=== PATIENT | female | born 1970 | race Caucasian/White ===

== ENCOUNTER 2024-06-12 14:04 | Outpatient (CLI) | payer OTHER, SELFPAY ==
--- OUTSIDE RECORDS SUMMARY | 2024-06-12 14:13 | XMS_ITS | Encounter Summary ---
Author Organization [facility] Address [address] [place] [address] Care Team Providers Care Patient Safety Manager Name Role Phone Mainor Welch MD Primary Care Provider [phone] Encounter Details Date Type Department Care Team (Late Contact Info) Description 03/21/2007 Outpatient Historical [facility] Internal Medicine [address] [phone] Mainor Welch MD [address] [place] [address] [address] [place] [address] Social History Tobacco Use Types Packs/Day Years Used Date Smoking Tobacco: Never Assessed Comments Unknown Sex and Gender Information Value Date Recorded Sex Assigned at Not on file Legal Sex Female 5:28 AM RESPIRATORY THERAPY MANAGER Gender Identity Not on file Sexual Orientation Not on file documented as of this encounter Last Filed Vital Signs Vital Sign Reading Time Taken Comments Blood Pressure 140/88 03/21/2007 10:45 AM RESPIRATORY THERAPY MANAGER Pulse - - Temperature - - Respiratory Rate - - Oxygen Saturation - - Inhaled Oxygen Concentration - - Weight 118.8 kg (262 lb) 03/21/2007 10:45 AM RESPIRATORY THERAPY MANAGER Height - - Body Mass Index - - documented in this encounter Plan of Treatment Upcoming Encounters Date Type Department Care Team (Late st Contact Info) Description 09/10/2024 3:20 PM CDT Office Visit [facility] Primary Care [address] [place] [address] Mainor Welch MD [address] [place] [phone] documented as of this encounter Visit Diagnoses Not on filedocumented in this encounter Care Teams Patient Safety Manager Relationship Specialty Start Date End Date Mainor Welch MD PCP - General 10/09/07 documented as of this encounter
--- OUTSIDE RECORDS SUMMARY | 2024-06-12 14:13 | XMS_ITS | Encounter Summary ---
Author Organization [facility] Address [address] [place] [address] Care Team Providers Care Founder & Ceo Name Role Phone Mainor Welch MD Primary Care Provider Encounter Details Date Type Department Care Team (Late st Contact Info) Description 05/22/2007 Orders Only [facility] Internal Medicine [address] [address] Mainor Welch MD [address] [place] [phone] Social History Tobacco Use Types Packs/Day Years Used Date Smoking Tobacco: Never Assessed Comments Unknown Sex and Gender Information Value Date Recorded Sex Assigned at Not on file Legal Sex Female 5:28 AM SCALE ATTENDANT Gender Identity Not on file Sexual Orientation Not on file documented as of this encounter Progress Notes * Mainor Welch MD - 09/05/2007 9:05 PM CDT TIME:08:45 am PATIENT`S HOME PHONE: PATIENT`S WORK PHONE: PATIENT`S INSURANCE: [employer] WHO TOOK THE CALL: Ila Dunn C GENERAL INFORMATION ALTERNATIVE PHONE NUMBER: [phone] WHO CALLED: Patient called. Patient reports no known allergies. 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 The symptoms began approximately 2 days ago. Drainage yellow COUGH:Patient complains of cough. The symptoms began approximately 2 days ago. Nonproductive HEADACHE: Patient complains of headache. The symptoms began approximately 2 days ago. Pressure RUNNY NOSE: Patient complains of runny nose. The runny nose symptoms began approximately 2 days ago. SECTION 1: REQUESTED ACTION bernard 05/22/07 at 08:48 am: MEDICATION REQUEST: Patient wants medications and can not come in. DOCTOR`S RESPONSE: susu 05/22/07 at 08:49 am MEDICATIONS: Call in to Pharmacy ZITHROMAX Z-LYNNETTE ORAL TABLET 250 MG, DIRECTED, 1 Dispensed, status: NEW PRESCRIPTION, 05/22/2007. will need seen if not improving FINAL ACTION: bernard 05/22/07 at 09:02 am Spoke with patient 05/22/07 at 09:02 am. Called pharmacy at 05/22/07 at 09:02 am. Electronically Signed by: Ila Dunn on Tuesday, May 22, 2007 documented in this encounter Plan of Treatment Upcoming Encounters Date Type Department Care Team (Late st Contact Info) Description 09/10/2024 3:20 PM CDT Office Visit [facility] [place] [address] Mainor Welch MD [address] [place] [address] documented as of this encounter Visit Diagnoses Not on filedocumented in this encounter Care Teams Founder & Ceo Relationship Specialty Start Date End Date Mainor Welch MD PCP - General 10/09/07 documented as of this encounter
--- OUTSIDE RECORDS SUMMARY | 2024-06-12 14:13 | XMS_ITS | Encounter Summary ---
Author Organization [facility] Address [address] [place] [address] Care Team Providers Care Quilting Machine Operator Name Role Phone Mainor Welch MD Primary Care Provider [phone] Encounter Details Date Type Department Care Team (Late st Contact Info) Description 02/21/2007 Outpatient Historical [facility] Internal Medicine [address] [address] Mainor Welch MD [address] [place] [phone] Social History Tobacco Use Types Packs/Day Years Used Date Smoking Tobacco: Never Assessed Comments Unknown Sex and Gender Information Value Date Recorded Sex Assigned at Not on file Legal Sex Female 5:28 AM SUPERVISING BAILIFF Gender Identity Not on file Sexual Orientation Not on file documented as of this encounter Last Filed Vital Signs Vital Sign Reading Time Taken Comments Blood Pressure 130/80 02/21/2007 11:30 AM CDT Pulse - - Temperature 36.8 C (98.2 F) 02/21/2007 11:30 AM CDT Respiratory Rate - - Oxygen Saturation - - Inhaled Oxygen Concentration - - Weight 123.4 kg (272 lb) 02/21/2007 11:30 AM CDT Height - - Body Mass Index - - documented in this encounter Plan of Treatment Upcoming Encounters Date Type Department Care Team (Late st Contact Info) Description 09/10/2024 3:20 PM CDT Office Visit [facility] Primary Care [address] [place] [address] Mainor Welch MD [address] [place] [address] [address] [place] [address] documented as of this encounter Visit Diagnoses Not on filedocumented in this encounter Care Teams Quilting Machine Operator Relationship Specialty Start Date End Date Mainor Welch MD PCP - General 10/09/07 documented as of this encounter
--- OUTSIDE RECORDS SUMMARY | 2024-06-12 14:13 | XMS_ITS | Referral Summary ---
Author Organization [facility] [address] Address [address] [place] [address] Care Team Providers Care Software Engineering Associate Manager Name Role Phone Mainor Welch MD Primary Care Provider + Allergies No known active allergies Medications zolpidem (AMBIEN) 10 mg tablet Take 10 mg by mouth nightly as needed 1 Active valACYclovir (VALTREX) 500 mg tablet Take 500 mg by mouth 2 (two) times a day 0 Active prochlorperazin e (COMPAZINE) 10 mg tablet Take 10 mg by mouth every 6 (six) hours as needed 8 Active clotrimazole-be tamethasone (LOTRISONE) cream Apply topically 2 (two) times a day 9 Active buPROPion XL (WELLBUTRIN XL) 150 mg 24 hr tablet 1 Active ALPRAZolam (XANAX) 0.25 mg tablet 1 Active mupirocin (BACTROBAN) 2 % ointmentIndicat ions:Insect bite of left shoulder, initial encounter Apply topically 3 (three) times a day 22 g 4 Active Active Problems No known active problems Social History Tobacco Use Types Packs/Day Years Used Date Smoking Tobacco: Never Assessed Comments Unknown Sex and Gender Information Value Date Recorded Sex Assigned at Not on file Legal Sex Female 12:51 PM MERCHANDISING DIRECTOR Gender Identity Not on file Sexual Orientation Not on file Last Filed Vital Signs Vital Sign Reading Time Taken Comments Blood Pressure 110/64 06/02/2023 11:01 AM MERCHANDISING DIRECTOR Pulse 70 06/02/2023 11:01 AM MERCHANDISING DIRECTOR Temperature 36.9 C (98.5 F) 06/02/2023 11:01 AM MERCHANDISING DIRECTOR Respiratory Rate 21 06/02/2023 11:01 AM MERCHANDISING DIRECTOR Oxygen Saturation 97% 06/02/2023 11:01 AM MERCHANDISING DIRECTOR Inhaled Oxygen Concentration - - Weight 90.7 kg (200 lb) 06/02/2023 11:01 AM MERCHANDISING DIRECTOR Height 170.2 cm (5' 7 ) 06/02/2023 11:01 AM MERCHANDISING DIRECTOR Body Mass Index 31.32 06/02/2023 11:01 AM MERCHANDISING DIRECTOR Plan of Treatment Not on file [place] [id number] [employer] [facility] [place] [id number] [facility] [employer] Care Teams Software Engineering Associate Manager Relationship Specialty Start Date End Date Mainor Welch MD [address] [place] [address] PCP - General Internal Medicine 01/07/21
--- OUTSIDE RECORDS SUMMARY | 2024-06-12 14:13 | XMS_ITS | Clinical Summary ---
Author Organization [facility] [address] Address [address] [place] [phone] Care Team Providers Care Furniture Manager Name Role Phone Mainor Welch MD [...] on file Legal Sex Female 12:51 PM THERMOSTATIC CONTROLS SUPERVISOR Gender Identity Not on file Sexual Orientation Not on file Obstetrics History Last Filed Vital Signs Vital Sign Reading Time Taken Comments Blood Pressure 110/64 06/02/2023 11:01 AM THERMOSTATIC CONTROLS SUPERVISOR Pulse 70 06/02/2023 11:01 AM THERMOSTATIC CONTROLS SUPERVISOR Temperature 36.9 C (98.5 F) 06/02/2023 11:01 AM THERMOSTATIC CONTROLS SUPERVISOR Respiratory Rate 21 06/02/2023 11:01 AM THERMOSTATIC CONTROLS SUPERVISOR Oxygen Saturation 97% 06/02/2023 11:01 AM THERMOSTATIC CONTROLS SUPERVISOR Inhaled Oxygen Concentration - - Weight 90.7 kg (200 lb) 06/02/2023 11:01 AM THERMOSTATIC CONTROLS SUPERVISOR Height 170.2 cm (5' 7 ) 06/02/2023 11:01 AM THERMOSTATIC CONTROLS SUPERVISOR Body Mass Index 31.32 06/02/2023 11:01 AM THERMOSTATIC CONTROLS SUPERVISOR Plan of Treatment Health Maintenance Due Date Last Done Comments Cervical Cancer Screening 1971 Colon Cancer Screening-Colonoscopy 1971 Depression Screening 1971 Hepatitis C Screening 1971 Hepatitis B Screening 08/22/1989 Regular Well Visit/Exam 18-64 08/22/1989 Zoster Vaccine (1 of 2) 08/22/2021 Breast Cancer Screening-Mammogram 12/24/2023 12/23/2022, 12/23/2022, 09/15/2021, Additional history exists Covid-19 Vaccine (3 - season) 2023 05/25/2021, 07/22/2020 Influenza Vaccine (#1) 2023 , 01/22/2022, 04/02/2021, Additional history exists DTaP/Tdap/Td Vaccine (3 - Td or Tdap) 08/21/2031 08/20/2021, 03/13/2012 Pneumococcal vaccine <65 Aged Out No longer eligible based on patient's age to complete this topic Insurance winter [facility] [id number] [employer] [address] [place] [id number] [facility] [employer] Care Teams Furniture Manager Relationship Specialty Start Date End Date Mainor Welch MD [address] [place] [phone] PCP - General Internal Medicine 01/07/21
--- OUTSIDE RECORDS SUMMARY | 2024-06-12 14:13 | XMS_ITS | Encounter Summary ---
Author Organization [facility] Address [address] [place] [address] Care Team Providers Care Component Overhaul Operator Name Role Phone Mainor Welch MD Primary Care Provider [phone] Encounter Details Date Type Department Care Team (Late st Contact Info) Description 03/21/2007 Orders Only [facility] Internal Medicine [address] [address] Mainor Welch MD [address] [place] [phone] Social History Tobacco Use Types Packs/Day Years Used Date Smoking Tobacco: Never Assessed Comments Unknown Sex and Gender Information Value Date Recorded Sex Assigned at Not on file Legal Sex Female 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 CHIEF COMPLAINT follow up elevated B/P and migraines. HISTORY: headache better, had sinus-improved, lab pend, lost 10 lbs PHYSICAL EXAMINATION: EARS, NOSE, MOUTH AND THROAT: EARS: Tympanic membranes shiny without retraction. Canals unremarkable. Hearing grossly normal. ORAL: Normal oropharynx. NECK/THYROID: Trachea midline. No thyroid enlargement, tenderness, or mass. No supraclavicular or cervical adenopathy. RESPIRATORY: Clear to auscultation and percussion. Normal respiratory effort. CARDIOVASCULAR: CARDIAC: Regular rhythm. No murmurs, rubs, or gallops. EDEMA/VARICOSITIES OF EXTREMITIES: No edema or varicosities. ASSESSMENT/PLAN: 311-DEPRESSION discussed wean zoloft add alt med MEDICATIONS: WELLBUTRIN SR ORAL TABLET 12 HR 100 MG, 1 Every Day, 30 Dispensed, 3 Fills, status: NEW PRESCRIPTION, 03/21/2007. 783.1-ABNORMAL WEIGHT GAIN cont med, enc exercise 784.0-HEADACHE inc med, improved MEDICATIONS: TOPAMAX ORAL TABLET 50 MG, 1 Two Times A Day, 60 Dispensed, 4 Fills, status: NEW PRESCRIPTION, 03/21/2007. 796.2-BLOOD PRESSURE ELEVATED W/O DX OF HTN cont monitor, may need med RETURN VISIT : Patient instructed to return in 6 weeks. Electronically Signed by: Mainor Welch MD on Wednesday, March 21, 2007 documented in this encounter Plan of Treatment Upcoming Encounters Date Type Department Care Team (Late st Contact Info) Description 09/10/2024 3:20 PM CDT Office Visit [facility] Primary Care [id number] [place] [address] Mainor Welch MD [address] [place] [phone] documented as of this encounter Visit Diagnoses Not on filedocumented in this encounter Care Teams Component Overhaul Operator Relationship Specialty Start Date End Date Mainor Welch MD PCP - General 10/09/07 documented as of this encounter
--- OUTSIDE RECORDS SUMMARY | 2024-06-12 14:13 | XMS_ITS | Clinical Summary ---
Author Organization [facility] Address [address] [place] [address] Care Team Providers Care Irrigation Teacher Name Role Phone Mainor Welch MD Primary Care Provider [phone] Allergies Active Allergy Reactions Criticality Noted Date Comments No Known Allergies 02/21/2007 Medications omeprazole (PriLOSEC) 10 mg Capsule, Delayed Release(E.C.) Take 20 mg by mouth daily. Active calcium as carbonate (TUMS) 500 mg (200 mg elemental) Tablet, Chewable Take by mouth. Activ e clotrimazole-be tamethasone (Lotrisone) 1-0.05 % Cream Apply to affected area 2 times daily. Chest bid 45 Gram 2 2 Active valACYclovir (VALTREX) 500 mg tablet Take 1 Tablet (500 mg) by mouth 2 times daily. 30 Tablet 3 3 Active zolpidem (Ambien) 10 mg tabletIndicatio ns:Other insomnia Take 1 Tablet (10 mg) by mouth nightly as needed for Insomnia. 90 Tablet 3 3 Active buPROPion HCL (WELLBUTRIN XL) 150 mg Extended Release 24 hour tabletIndicatio ns:Depressive disorder TAKE 1 TABLET(150 MG) BY MOUTH DAILY IN THE MORNING 90 Tablet 3 4 Active ALPRAZolam (XANAX) 0.25 mg tabletIndicatio ns:Generalized anxiety disorder TAKE 1 TABLET(0.25 MG) BY MOUTH TWICE DAILY NEEDED FOR ANXIETY 60 Tablet 3 4 Active zolpidem (AMBIEN) 10 mg tabletIndicatio ns:Other insomnia TAKE 1 TABLET(10 MG) BY MOUTH EVERY NIGHT NEEDED FOR INSOMNIA 30 Tablet 3 4 Active prochlorperazin e maleate (COMPAZINE) 10 mg tablet Take 1 Tablet (10 mg) by mouth every 6 hours as needed for Nausea. 30 Tablet 1 4 Active tirzepatide, weight loss, (Zepbound) 7.5 mg/0.5 mL Pen Injector Inject 7.5 mg by subcutaneous injection every 7 days. 2 mL 3 4 Active thiamine (VITAMIN B-1) 100 mg tablet Take 1 Tablet (100 mg) by mouth daily. 90 Tablet 3 5 Active Active Problems Patient Care Coordination No te Formatting of this note migh t be different from the original. Prev visit 09/19/23 Problem Noted Date Diagnosed Date Obesity (BMI 30.0-34.9) 03/21/2023 Vitamin B12 deficiency (non anemic) 10/29/2022 Genital herpes 04/04/2013 Essential hypertension, benign 11/09/2012 Insomnia 02/21/2007 Resolved Problems Problem Noted Date Diagnosed Date Resolved Date Abnormal weight gain 02/21/2007 014 Headache(784.0) 02/21/2007 10/19/2007 Elevated blood pressure read ing without diagnosis of hypertension 02/21/2007 11/09/2012 Encounters Date Type Department Care Team Description 05/16/2024 External Device Data STL ABSTRACTION Provider, Abstract 05/14/2024 Telephone [facility] Primary Care [place] [address] [address] [facility] [address] [place] [address] Mainor Welch MD Patient Communication 05/14/2024 Results Follow-Up [place] [address] [address] [facility] [address] [place] [address] Mainor Welch MD CBC WITH DIFFERENTIAL, COMPREHENSIVE METABOLIC PANEL, IRON, TIBC, AND PERCENT SATURATION, Additional followed-up results: 4 from Last 3 Months Immunizations Immunization Administration Dates Next Due (ADACEL/BOOSTRIX)(10 YR UP) TDAP VACCINE, 0.5ML, IM 08/20/2021,03/13/2012 (PAT) COVID-19 VACCINE - EMERGENCY USE AUTHORIZATION, AD26,COV2S(PF) 0.5 ML IM SUSP 07/22/2020 (SPIKEVAX) (12 YRS UP PRIMAR Y SERIES) COVID-19 VACCINE - MRNA-1273(PF) 100 MCG/0.5 ML IM SUSP 05/25/2021 INFLUENZA VACCINE QUADRIVALE NT 6 MOS UP PF IM 03/21/2023,04/02/2021,02/27/2018 INFLUENZA VACCINE TRIVALENT SPLIT VIRUS, (6 MOS UP), 0.5ML (PF), IM 02/23/2024 Influenza Seasonal Unspecifi ed Formulation IM 03/21/2023,01/22/2022,03/08/2020,2016 Influenza Vaccine 18+ C.derived Pf Im 03/22/2019 Family History Medical History Relation Name Comments Stroke Father Diabetes Maternal Aunt Hypertension Maternal Aunt Stroke Maternal Aunt Diabetes Mother Pastora Hypertension Mother Pastora Stroke Mother Pastora Breast Cancer Neg Hx Colon Cancer Neg Hx Ovarian Cancer Neg Hx Relation Name Status Comments Father Alive Maternal Aunt Mother Pastora Alive Social History Tobacco Use Types Packs/Day Years Used Date Smoking Tobacco: Never Passive Smoke Exposure: Never Smokeless Tobacco: Never Tobacco Cessation:Counseling Given: No Alcohol Use Standard Drinks/Week Comments Yes 0 (1 standard drink = 0.6 oz pur e alcohol) occ. Comments No Sex and Gender Information Value Date Recorded Sex Assigned at Not on file Legal Sex Female 5:28 AM TOWER TECHNICIAN Gender Identity Not on file Sexual Orientation Not on file Last Filed Vital Signs Vital Sign Reading Time Taken Comments Blood Pressure 128/80 03/06/2024 2:46 PM TOWER TECHNICIAN Pulse 94 03/06/2024 2:46 PM TOWER TECHNICIAN Temperature 37.1 C (98.8 F) 02/25/2022 1:18 PM CDT Respiratory Rate 12 05/31/2021 12:12 PM TOWER TECHNICIAN Oxygen Saturation 98% 03/06/2024 2:46 PM TOWER TECHNICIAN Inhaled Oxygen Concentration - - Weight 73.5 kg (162 lb) 03/06/2024 2:46 PM TOWER TECHNICIAN Height 170.2 cm (5' 7 ) 03/06/2024 2:46 PM TOWER TECHNICIAN Body Mass Index 25.37 03/06/2024 2:46 PM TOWER TECHNICIAN Plan of Treatment Upcoming Encounters Date Type Department Care Team (Late st Contact Info) Description 09/10/2024 3:20 PM CDT Office Visit [facility] Primary Care [address] [place] [address] Mainor Welch MD [address] [facility] [address] [place] [address] Health Maintenance Due Date Last Done Comments HEPATITIS B VACCINES (1 of 3 - 19+ 3-dose series) 08/22/1990 FIT-DNA Q 3 years 08/22/2016 FIT/FOBT Q 1 year 08/22/2016 Flex Sig/CT Colonography Q 5 years 08/22/2016 ZOSTER VACCINE (1 of 2) 08/22/2021 CERVICAL CANCER SCREENING 12/04/20232020, 03/02/2018, 03/02/2018 BREAST CANCER SCREENING 12/24/2023 12/24/19 23, 06/14/2022, 09/30/2021, Additional history exists COVID-19 Vaccine (2023-2 5 season) 2023 05/25/2021, 07/22/2020 Preventative Visit- Commercial 04/24/2024 0 09/19/2023, 09/02/2022, 08/20/2021, Additional history exists Pre-Diabetes and Diabetes Screening 09/02/2025 09/02/2022 COLORECTAL SCREENING 05/31/2031 05/31/2021, 05/31/19 22 Colorectal Cancer Screening 05/31/2031 DTAP/TDAP/TD VACCINES (3 - T d or Tdap) 08/21/2031 08/20/2021, 03/13/2012 INFLUENZA VACCINE Completed 02/23/2024, , 03/21/2023, Additional history exists Procedures Procedure Name Priority Date/Time Associated Diagnosis Comments VITAMIN D 25 HYDROXY Routine 05/11/2024 7:32 AM TOWER TECHNICIAN Vitamin D deficiency VITAMIN B12 LEVEL Routine 05/11/2024 7:3 2 AM TOWER TECHNICIAN Vitamin B12 deficiency (non anemic) VITAMIN B1 LEVEL Routine 05/11/2024 7:32 AM TOWER TECHNICIAN Vitamin B12 deficiency (non anemic) TSH Routine 05/11/2024 7:32 AM TOWER TECHNICIAN Other hyperlipidemia LIPID PANEL Routine 05/11/2024 7:32 AM TOWER TECHNICIAN Other hyperlipidemia IRON, TIBC, AND PERCENT SATURATION Routine 05/11/2024 7:32 AM TOWER TECHNICIAN History of iron deficiency COMPREHENSIVE METABOLIC PANEL Routine 05/11/2024 7:32 AM TOWER TECHNICIAN Other hyperlipidemia CBC WITH DIFFERENTIAL Routine 05/11/2024 7:32 AM TOWER TECHNICIAN History of iron deficiency MAMMO 3D JERILYN SCREEN BILAT W OR WO CAD Routine 12/23/2022 8:06 AM CDT Breast cancer screening by mammogram HEMOGLOBIN A1C Routine 09/02/2022 10:59 AM CDT Encounter for routine adult health examination with abnormal findings COLONOSCOPY REPORT 05/31/2021 12 :06 PM TOWER TECHNICIAN CERV/VAG CYTO AGE BASED SCREEN PAP Routine 12/03/2020 4:13 PM CDT Well woman exam with routine gynecological exam from Last 3 Months or Most Recently Relevant to Health Maintenance Results * IRON, TIBC, AND PERCENT SATURATION (05/11/2024 7:32 AM TOWER TECHNICIAN) IRON 67 45 - 160 mcg/dL [facility] TIBC 311 250 - 450 mcg/dL (calc) [facility] IRON % SATURATION 22 16 - 45 % (calc) [facility] Comment: FASTING:YES FASTING: YES Test Performed at: [facility] [address] [address] Danyelle Villasenor MD Blood 05/11/2024 7:32 AM TOWER TECHNICIAN 05/11/2024 7:32 AM TOWER TECHNICIAN Mainor Welch MD CHEMISTRY ORDERABLES Final Re sult [facility] [phone] [employer] [facility] [address] [place] [address] * CBC WITH DIFFERENTIAL (05/11/2024 7:32 AM TOWER TECHNICIAN) WBC TNP [place]/u L [facility] Comment: TEST NOT PERFORMED The specimen exceeds stability for the test requested. FASTING:YES FASTING: YES Test Performed at: [facility] [address] [address] [place] [address] Danylele Villasenor Blood 05/11/2024 7:32 AM TOWER TECHNICIAN 05/11/2024 7:32 AM TOWER TECHNICIAN Mainor Welch MD HEMATOLOGY ORDERABLES Final R esult [facility] [phone] [facility] [address] [address] [place] [address] * VITAMIN D 25 HYDROXY (05/11/2024 7:32 AM TOWER TECHNICIAN) VITAMIN D, 25 OH, TOTAL 87 30 - 100 ng/mL [facility] Comment: Vitamin D Status 25-OH Vitamin D: Deficiency: <20 ng/mL Insufficiency: 20 - 29 ng/mL Optimal: > or = 30 ng/mL For 25-OH Vitamin D testing on patients on D2-supplementation and patients for whom quantitation of D2 and D3 fractions is required, the [facility](TM) 25-OH VIT D, (D2,D3), LC/MS/MS is recommended: order code 69808 (patients >2yrs). See Note 1 Note 1 For additional information, please refer to http://education.Peap.co/faq/XBB903 (This link is being provided for informational/ educational purposes only.) FASTING:YES FASTING: YES Test Performed at: [facility] [address] [place] [address] Danyelle Villasenor MD Blood 05/11/2024 7:32 AM TOWER TECHNICIAN 05/11/2024 7:32 AM TOWER TECHNICIAN Result [facility] Mainor Welch MD CHEMISTRY ORDERABLES Final Re sult Performing Organization Address City/[facility]/ZIP [facility] Phone Number [facility] [phone] [facility] [address] [place] [address] * TSH (05/11/2024 7:32 AM TOWER TECHNICIAN) TSH 2.59 mIU/L [facility] Comment: Reference Range > or = 20 Years 0.40-4.50 Ranges First trimester 0.26-2.66 Second trimester 0.55-2.73 Third trimester 0.43-2.91 FASTING:YES FASTING: YES Test Performed at: [employer] [place] [address] [place] [address] Danyelle Villasenor Blood 05/11/2024 7:32 AM TOWER TECHNICIAN 05/11/2024 7:32 AM TOWER TECHNICIAN Result [facility] Mainor Welch MD CHEMISTRY ORDERABLES Final Re sult Performing Organization Address [facility] Phone Number [facility] [phone] [place] [address] [place] [address] * (ABNORMAL) VITAMIN B1 LEVEL (05/11/2024 7:32 AM TOWER TECHNICIAN) VITAMIN B1 52(L) 78 - 185 nmol/L [facility] Comment: (Note) Vitamin supplementation within 24 hours prior to blood draw may affect the accuracy of the results. This test was developed and its analytical performance characteristics have been determined by [facility]. It has not been cleared or approved by FDA. This assay has been validated pursuant to the CLIA regulations and is used for clinical purposes. [facility] [address] [place] [address],[address] [facility] [address] Kerline Hanson MD, PhD FASTING:YES FASTING: YES Test Performed at: [facility] [address] [facility] [address] [place] [address] Kerline Hanson MD,PhD Blood 05/11/2024 7:32 AM TOWER TECHNICIAN 05/11/2024 7:32 AM TOWER TECHNICIAN Mainor Welch MD CHEMISTRY ORDERABLES Final Re sult Performing Organization Address [facility]/ZIP Co de Phone Number [facility] [phone] [facility] [address] [facility] [address], [address] [place] [address] * VITAMIN B12 LEVEL (05/11/2024 7:32 AM TOWER TECHNICIAN) Pathologist [facility] VITAMIN B12 569 200 - 1100 pg/mL [facility] Comment: FASTING:YES FASTING: YES Test Performed at: [facility] [address] [place] [address] Danyelle Villasenor MD Blood 05/11/2024 7:32 AM TOWER TECHNICIAN 05/11/2024 7:32 AM TOWER TECHNICIAN Result [facility] Mainor Welch MD CHEMISTRY ORDERABLES Final Re sult Performing Organization Address [facility] Co de Phone Number [facility] [phone] [facility] [address] [place] [address] * (ABNORMAL) LIPID PANEL (05/11/2024 7:32 AM TOWER TECHNICIAN) CHOLESTEROL 186 <200 mg/dL [facility] HDL 72 > OR = 50 mg/dL [facility] TRIGLYCERIDE 48 <150 mg/dL [facility] LDL CALCULATED 100(H) mg/dL (calc) [facility] Comment: Reference range: <100 Desirable range <100 mg/dL for primary prevention; <70 mg/dL for patients with CHD or diabetic patients with > or = 2 CHD risk factors. LDL-C is now calculated using the Sunday-Blackmon calculation, which is a validated novel method providing better accuracy than the Friedewald equation in the estimation of LDL-C. Sunday SS et al. ZORAIDA. 2013;310(19): 5818-0647 (http://education.Peap.co/faq/NCQ707) CHOL/HDL RATIO 2.6 <5.0 (calc) [facility] [place] NON-HDL CHOLESTEROL 114 <130 mg/dL (calc) [facility] Comment: For patients with diabetes plus 1 major ASCVD risk factor, treating to a non-HDL-C goal of <100 mg/dL (LDL-C of <70 mg/dL) is considered a therapeutic option. Test Performed at: [facility] [address] [address] [place] [address] Danyelle Villasenor Blood 05/11/2024 7:32 AM TOWER TECHNICIAN 05/11/2024 7:32 AM TOWER TECHNICIAN us Mainor Welch MD CHEMISTRY ORDERABLES Final Re sult [facility] [phone] [facility] [employer] [address] [address] [address] * COMPREHENSIVE METABOLIC PANEL (05/11/2024 7:32 AM TOWER TECHNICIAN) GLUCOSE 87 65 - 99 mg/dL [facility] [place] Comment: Fasting reference interval BUN 15 7 - 25 mg/dL [facility] [place] CREATININE 0.83 0.50 - 1.03 mg/dL [facility] GFR 85 > OR = 60 mL/min/1. 73m2 [facility] [place] BUN/CREAT RATIO SEE NOTE: 6 - 22 (calc) [facility] Comment: Not Reported: BUN and Creatinine are within reference range. SODIUM 139 135 - 146 mmol/L [facility] POTASSIUM 3.8 3.5 - 5.3 mmol/L [facility] CHLORIDE 104 98 - 110 mmol/L [facility] CO2 27 20 - 32 mmol/L [facility] CALCIUM 9.1 8.6 - 10.4 mg/dL [facility] TOTAL PROTEIN 6.3 6.1 - 8.1 g/dL [facility] ALBUMIN 4.1 3.6 - 5.1 g/dL [facility] [employer] [facility] [place] GLOBULIN 2.2 1.9 - 3.7 g/dL (calc) [facility] [employer] [facility] [place] ALBUMIN/GLOBULIN RATIO 1.9 1.0 - 2.5 (calc) [facility] BILIRUBIN TOTAL 0.4 0.2 - 1.2 mg/dL [facility] [employer] [facility] [place] ALKALINE PHOSPHATASE 50 37 - 153 U/L [facility] [employer] [facility] [place] AST 17 10 - 35 U/L [facility] [employer] [facility] [place] ALT 10 6 - 29 U/L [facility] [employer] [facility] [place] Comment: FASTING:YES FASTING: YES Test Performed at: [place] [address] [place] [address] Danyelle Villasenor Blood 05/11/2024 7:32 AM TOWER TECHNICIAN 05/11/2024 7:32 AM TOWER TECHNICIAN Mainor Welch MD CHEMISTRY ORDERABLES Final Re sult [facility] [phone] [place] [address] [address] [place] [address] * MAMMO SCRN BILAT 3D JERILYN W OR WO CAD (12/23/2022 8:06 AM CDT) Anatomical Region Laterality Modality Breast Bilateral Mammography Impressions 12/23/2022 4:05 PM CDT : No mammographic evidence of malignancy. BI-RADS ASSESSMENT: 1 - Negative RECOMMENDATION: Routine annual screening mammography. Narrative 12/23/2022 4:05 PM CDT EXAM: MAMMO SCRN BILAT 3D JERILYN W OR WO CAD INDICATION: Screening COMPARISON: 09/15/2021 MAMMO SCREEN BILAT W OR WO CAD and 04/09/2018 MAMMO SCREEN BILAT W OR WO CAD BREAST COMPOSITION: There are scattered areas of fibroglandular density. FINDINGS: RIGHT BREAST: There are no suspicious masses, calcifications, or areas of architectural distortion. LEFT BREAST: There are no suspicious masses, calcifications, or areas of architectural distortion. Mainor Welch MD MAMMO ORDERABLES Final Result * HEMOGLOBIN A1C (09/02/2022 10:59 AM CDT) HEMOGLOBIN A1C 5.0 <5.7 % of total Hgb [facility] [place] Comment: For the purpose of screening for the presence of diabetes: <5.7% Consistent with the absence of diabetes 5.7-6.4% Consistent with increased risk for diabetes (prediabetes) > or =6.5% Consistent with diabetes This assay result is consistent with a decreased risk of diabetes. Currently, no consensus exists regarding use of hemoglobin A1c for diagnosis of diabetes in children. According to [place] Diabetes Association (ADA) guidelines, hemoglobin A1c <7.0% represents optimal control in non- diabetic patients. Different metrics may apply to specific patient populations. Standards of Medical Care in Diabetes(ADA). ESTIMATED AVERAGE GLUCOSE (MG/DL) 97 mg/dL [facility] ESTIMATED AVERAGE GLUCOSE (MMOL/L) 5.4 mmol/L [facility] [place] Comment: Test Performed at: [facility] [address] [address] [place] [address] [facility] Blood 09/02/2022 10:5 9 AM CDT 09/02/2022 11:00 AM CDT us Mainor Welch MD CHEMISTRY ORDERABLES Final Re sult [facility] [phone] [facility] [employer] [address] [address] [address] * COLONOSCOPY REPORT (05/31/2021 12:06 PM TOWER TECHNICIAN) Narrative Procedure Note Luis Crowe MD - 05/31/2021 12:05 PM CST [facility] Endoscopy Patient Name: Sony Posey Procedure Date: 05/31/2021 Date of : 1970 Age: 50 Attending MD: Luis Crowe MD Procedure: Colonoscopy Indications: Screening for colorectal malignant neoplasm Providers: Luis Crowe MD Referring MD: Mainor Welch MD Medicines: General Anesthesia Procedure: Informed consent was obtained for the procedure, including moderate sedation after risks were discussed. Based on the pre-procedure assessment, including review of the patient's medical history, medications, allergies, and review of systems, the patient was deemed to be an appropriate candidate for sedation. A timeout was performed. Continuous ECG monitoring, pulse oximetry, blood pressure monitoring, and direct observation were performed. The Colonoscope was introduced through the anus and advanced to the terminal ileum. The colonoscopy was performed without difficulty. The patient tolerated the procedure well. The quality of the bowel preparation was good. Estimated Blood Loss: Estimated blood loss was minimal. Findings: A 6 mm polyp was found in the ascending colon. The polyp was flat. The polyp was removed with a cold snare. Resection and retrieval were complete. Multiple small and large-mouthed diverticula were found in the sigmoid colon, descending colon and ascending colon. Internal hemorrhoids were found during retroflexion. The hemorrhoids were small. The exam was otherwise without abnormality. Complications: No immediate complications. Estimated blood loss: Minimal. Impression: - One 6 mm polyp in the ascending colon, removed with a cold snare. Resected and retrieved. - Diverticulosis in the sigmoid colon, in the descending colon and in the ascending colon. - Internal hemorrhoids. - The examination was otherwise normal. Recommendation: - Await pathology results. - If the pathology report reveals adenomatous tissue, then repeat the colonoscopy for surveillance in 5 years. Luis Crowe MD 05/31/2021 12:05:33 PM This report has been signed electronically. Number of Addenda: 0 Procedure Date: 05/31/2021 11:33:58 AM [address] [address] [place] Luis Crowe MD GI PROCEDURE ORDERABLES Final R esult * CERV/VAG CYTO AGE BASED SCREEN PAP (12/03/2020 4:13 PM CDT) COMMENT (PAP): [facility] Comment: This order for age-based cervical cancer and STI screening follows ACOG guidelines(PB 168, 140, WDL411). See individual assays for performing site location. CLINICAL INFORMATION [facility] Comment:Information not prov ided LAST MENSTRUAL PERIOD [facility] Comment:INFORMATION NOT PROV IDED PREV PAP: [facility] Comment:INFORMATION NOT PROV IDED PREV BX: [facility] Comment:INFORMATION NOT PROV IDED SOURCE [facility] Comment:Endocervix ADEQUACY: [facility] Comment: Satisfactory for evaluation. Endocervical/transformation zone component present. Age and/or menstrual status not provided PAP INTERP [facility] Comment:Negative for intraep ithelial lesion or malignancy. CYTOLOGY INFECTION [facility] Comment: Shift in vaginal perfecto suggestive of bacterial vaginosis. COMMENT [facility] Comment: This Pap test has been evaluated with computer assisted technology. SUEDING AND BUFFING MACHINE OPERATOR: [facility] Comment: MMW, CT(ASCP) CT screening location: [place] [address] [place] [phone] EXPLANATORY NOTE [facility] Comment: EXPLANATORY NOTE: The Pap is a screening test for cervical cancer. It is not a diagnostic test and is subject to false negative and false positive results. It is most reliable when a satisfactory sample, regularly obtained, is submitted with relevant clinical findings and history, and when the Pap result is evaluated along with historic and current clinical information. HPV E6/E7 Not Detected Not Detected [facility] Comment: Methodology: Banana Carrier-Mediated Amplification This assay detects E6/E7 viral messenger RNA (mRNA) from 14 high-risk HPV types (16,18,31,33,35,39,45,51,52,56,58,59,66,68). The analytical performance characteristics of this assay have been determined by [facility]. The modifications have not been cleared or approved by the FDA. This assay has been validated pursuant to the CLIA regulations and is used for clinical purposes. For additional information, please refer to http://education.MobiMagic.CorMedix/faq/KRF651r9 (This link if provided for information/ educational purposes only.) Test Performed at: [facility] [address] [place] [address] Miles Garibay D.O., MPH SL Genital SWAB OF ENDOCERVIX / Unknown 12/03/2020 4:13 PM CDT 12/03/2020 11:46 PM CDT Tara Self NP PATHOLOGY/CYTOLOGY ORDERABLES Fi nal Result [facility] [address] [place] [id number] from Last 3 Months or Most Recently Relevant to Health Maintenance Insurance winter VERONA WAGNER [id number] [facility] FEDERAL Advance Directives For more information, please contact: [phone] * Full Code (Latest Code Status on File) Date Activated Date Inactivated Comments 05/31/2021 11:04 AM 05/31/2021 2:31 PM Care Teams Irrigation Teacher Relationship Specialty Start Date End Date Mainor Welch MD PCP - General 10/09/07
--- NOTE | 2024-06-12 14:30 | ECG_ITS ---
Test Date: 2024-06-12 14:31:43 Measurements Intervals [place] Rate: 80 P: 56 CO: 170 QRS: 78 QRSD: 97 T: 51 QT: 365 QTc: 422 Interpretive Statements SINUS RHYTHM DELAYED PRECORDIAL R/S TRANSITION VOLTAGE CRITERIA FOR LVH BASELINE ARTIFACT- I, II, III, AVR, AVL, AVF, V1-V6 BORDERLINE ECG No previous ECG available for comparison Electronically Signed On 06-12-2024 15:38:00 GATHERING MACHINE FEEDER by Darren Serra D.O.
[2024-06-12 14:49] LABS: Hemoglobin 13.3 g/dL (12.0-15.0); Mean Corpuscular HGB Conc 32.4 g/dl (32-36); Mean Corpuscular Hemoglobin 30.9 pg (26-34); Mean Corpuscular Volume 95.3 fl (80-100); Mean Platelet Volume 10.6 fl (7.4-10.4); Platelet Count Result 191 k/mm3 (150-375); Red Cell Distribution Width 13.6 % (11.5-14.5); White Blood Count 7.2 K/mm3 (4.5-10.0)
[2024-06-12 14:57] LABS: Albumin Level 4.4 g/dL (3.5-5.1)
[2024-06-12 15:06] LABS: Prealbumin 25.7 mg/dL (17.6-36.0)
== END 2024-06-12 14:05 | disposition home or self-care (01) ==
PROVIDERS: PCP Internal Medicine; Visit Provider Surgery Plastic and Reconstructive Surgery
DX: Z41.1 Encounter for cosmetic surgery (principal); R63.4 Abnormal weight loss; R94.30 Abnormal result of cardiovascular function study, unspecified
CPT/HCPCS: 36415; 82040; 84134; 84425; 85027; 93005

== ENCOUNTER 2024-06-28 00:32 | Day surgery (SDC) | payer OTHER, SELFPAY ==
[2024-06-06 13:25] VITALS: BMI 23.5
--- NOTE | 2024-06-06 13:25 | PC.NURSE ---
Report to the Outpatient Waiting Room, entrance under the green pavilion located off [facility], at time _0600_ on date _[id number]_. Planned Procedure Time: _0730_.? Time changes happen often and if your time is changed the preop area will call you the afternoon before. - You and your visitor will be asked to self-screen and do not enter if you have any COVID symptoms. Please call surgeon if you need to reschedule. - A mask is optional within the hospital at this time. Patients may have clear liquids (water, carbonated beverages, clear teas, apple juice) until 3 hours prior to surgery with a maximum of 20 ounces. - No food from midnight until time of surgery and no smoking, or chewing tobacco (or any form of nicotine). No chewing gum, candy or mints. Take only the following medications with a SIP of water on the morning of surgery: ___Bupropion and if needed may take Alprazolam____ DO NOT STOP ANY OF YOUR OTHER PRESCRIPTION MEDICATIONS PRIOR TO SURGERY EXCEPT THE FOLLOWING Hold all vitamins and supplements for 3 days per anesthesiologist. Medications to discontinue per physician Date to take last wtuv___[id number]____ Please no make-up, nail equatorial guinean, hairspray, perfume, deodorant, or body powder the day of surgery.? No jewelry (including any body piercings) or valuables the day of surgery, leave them at home.? Please take a shower or bath the night before, or the morning of, surgery with an antibacterial soap.? Wear comfortable, loose fitting clothing.? - Jewelry must be removed prior to entering the operating room.? Rings and piercings that are not removed may be cut off. - The hospital will not accept responsibility for valuables.? - Please leave all valuables, including medications, at home the day of surgery. If you are going home after surgery, a licensed class a regional drivers must drive you home.? - NO public transportation without another adult if you receive anesthesia. - We recommend that an adult stay with you for 24 hours following discharge. - We also recommend that you do not drive, make important decision, drink alcoholic beverages, or take any drugs that were not prescribed by your health care provider for at least 24 hours after your discharge time. Follow any additional instructions given to you from your surgeon. Telephone instructions given to _Kim___and asked if any additional questions and then verbalized understanding. Patient advised to call surgeon office or pre surgery nurse liaison [phone] if any additional questions.
[2024-06-28] VITALS (10 sets, daily range): BP systolic 134–155; BP diastolic 61–88; PULSE 78–99; RESP 12–18; TEMP 36.2; O2SAT 100; BMI 23.5
--- OUTSIDE RECORDS SUMMARY | 2024-06-28 00:37 | XMS_ITS | Encounter Summary ---
Author Organization [facility] Address [address] [place] [address] Care Team Providers Care Promotion Producer Name Role Phone Mainor Welch MD Primary Care Provider [phone] Encounter Details Date Type Department Care Team (Late st Contact Info) Description 06/26/2024 External Device Data [facility] ABSTRACTION Provider, Abstract NO ADDRESS ON FILE Social History Tobacco Use Types Packs/Day Years Used Date Smoking Tobacco: Never Passive Smoke Exposure: Never Smokeless Tobacco: Never Alcohol Use Standard Drinks/Week Comments Yes 0 (1 standard drink = 0.6 oz pur e alcohol) occ. Comments No Sex and Gender Information Value Date Recorded Sex Assigned at Not on file Legal Sex Female 5:28 AM MORTGAGE LOAN COUNSELOR Gender Identity Not on file Sexual Orientation Not on file documented as of this encounter Plan of Treatment Upcoming Encounters Date Type Department Care Team (Late st Contact Info) Description 09/10/2024 3:20 PM CDT Office Visit [facility] [place] [address] Mainor Welch MD [address] [place] [address] [address] documented as of this encounter Visit Diagnoses Not on filedocumented in this encounter Care Teams Promotion Producer Relationship Specialty Start Date End Date Mainor Welch MD PCP - General 10/09/07 documented as of this encounter
--- OUTSIDE RECORDS SUMMARY | 2024-06-28 00:37 | XMS_ITS | Encounter Summary ---
Author Organization [facility] Address [address] [place] [address] Care Team Providers Care Sponge Hooker Name Role Phone Mainor Welch MD Primary Care Provider Reason for Visit * Reason Comments Provider Call Encounter Details Date Type Department Care Team (Late st Contact Info) Description 06/17/2024 Telephone [facility] Primary Care [address] [place] [address] Mainor Welch MD [address] [place] [address] [address] [place] [address] Provider Call Social History Tobacco Use Types Packs/Day Years Used Date Smoking Tobacco: Never Passive Smoke Exposure: Never Smokeless Tobacco: Never Alcohol Use Standard Drinks/Week Comments Yes 0 (1 standard drink = 0.6 oz pur e alcohol) occ. Comments No Sex and Gender Information Value Date Recorded Sex Assigned at Not on file Legal Sex Female 5:28 AM TRANSFORMER SHOP SUPERVISOR Gender Identity Not on file Sexual Orientation Not on file documented as of this encounter Miscellaneous Notes * Telephone Encounter - Patti Kyle - 06/18/2024 9:47 AM CST Results are entered and scanned into chart for review. SFORMER SHOP SUPERVISOR * Telephone Encounter - Sarah Morales - 06/17/2024 3:48 PM CST Copied from [facility] #[id number]. Topic: [id number] Call >> Jun 17, 2024 3:46 PM Sarah Contreras wrote: Caller is requesting to speak with Clinical Care Team. Caller Name: Dr. Tima Devi's Office Callback Number: [phone] Clinician Type: Other healthcare professional not listed above Call Notes: states she is sending pts labs over for review by PCP, FYI Is this addressing an immediate patient care need? No SFORMER SHOP SUPERVISOR documented in this encounter Plan of Treatment Upcoming Encounters Date Type Department Care Team (Late st Contact Info) Description 09/10/2024 3:20 PM CDT Office Visit [facility] [place] [address] Mainor Welch MD [address] [place], [place] [id number] documented as of this encounter Procedures Procedure Name Priority Date/Time Associated Diagnosis Comments ALBUMIN LEVEL Routine 06/12/2024 2:24 PM TRANSFORMER SHOP SUPERVISOR documented in this encounter Results * ALBUMIN LEVEL (06/12/2024 2:24 PM TRANSFORMER SHOP SUPERVISOR) ALBUMIN 4.4 3.5 - 5.1 g/dL EXTERNAL LAB PREALBUMIN 25.7 17.6 - 36.0 mg/dL EXTERNAL LAB Blood 06/12/2024 2:24 PM TRANSFORMER SHOP SUPERVISOR us Abstract Provider CHEMISTRY ORDERABLES Final Res ult EXTERNAL LAB documented in this encounter Visit Diagnoses Not on filedocumented in this encounter Care Teams Sponge Hooker Relationship Specialty Start Date End Date Mainor Welch MD PCP - General 10/09/07 documented as of this encounter
--- OUTSIDE RECORDS SUMMARY | 2024-06-28 00:38 | XMS_ITS | Referral Summary ---
Author Organization [facility] [address] Address [address] [place] [phone] Care Team Providers Care Plate Stacker Name Role Phone Mainor Welch MD Primary [...] on file Legal Sex Female 12:51 PM INTERIOR SURFACE INSULATION WORKER Gender Identity Not on file Sexual Orientation Not on file Last Filed Vital Signs Vital Sign Reading Time Taken Comments Blood Pressure 110/64 06/02/2023 11:01 AM INTERIOR SURFACE INSULATION WORKER Pulse 70 06/02/2023 11:01 AM INTERIOR SURFACE INSULATION WORKER Temperature 36.9 C (98.5 F) 06/02/2023 11:01 AM INTERIOR SURFACE INSULATION WORKER Respiratory Rate 21 06/02/2023 11:01 AM INTERIOR SURFACE INSULATION WORKER Oxygen Saturation 97% 06/02/2023 11:01 AM INTERIOR SURFACE INSULATION WORKER Inhaled Oxygen Concentration - - Weight 90.7 kg (200 lb) 06/02/2023 11:01 AM INTERIOR SURFACE INSULATION WORKER Height 170.2 cm (5' 7 ) 06/02/2023 11:01 AM INTERIOR SURFACE INSULATION WORKER Body Mass Index 31.32 06/02/2023 11:01 AM INTERIOR SURFACE INSULATION WORKER Plan of Treatment Not on file [place] [id number] Responsible [place] [facility] [address] [facility] [employer] Care Teams Plate Stacker Relationship Specialty Start Date End Date Mainor Welch MD PCP - General Internal Medicine 01/07/21
--- OUTSIDE RECORDS SUMMARY | 2024-06-28 00:38 | XMS_ITS | Encounter Summary ---
Author Organization [facility] Address [address] [place] [address] Care Team Providers Care Line Up Machine Operator Name Role Phone Mainor Welch MD Primary Care Provider [phone] Encounter Details Date Type Department Care Team (Late Contact Info) Description 03/21/2007 Outpatient Historical [facility] Internal Medicine [address] [phone] Mainor Welch MD [address] [place] [address] [address] [place] [address] Social History Tobacco Use Types Packs/Day Years Used Date Smoking Tobacco: Never Assessed Comments Unknown Sex and Gender Information Value Date Recorded Sex Assigned at Not on file Legal Sex Female 5:28 AM CHURCH BUSINESS ADMINISTRATOR Gender Identity Not on file Sexual Orientation Not on file documented as of this encounter Last Filed Vital Signs Vital Sign Reading Time Taken Comments Blood Pressure 140/88 03/21/2007 10:45 AM CHURCH BUSINESS ADMINISTRATOR Pulse - - Temperature - - Respiratory Rate - - Oxygen Saturation - - Inhaled Oxygen Concentration - - Weight 118.8 kg (262 lb) 03/21/2007 10:45 AM CHURCH BUSINESS ADMINISTRATOR Height - - Body Mass Index - - documented in this encounter Plan of Treatment Upcoming Encounters Date Type Department Care Team (Late st Contact Info) Description 09/10/2024 3:20 PM CDT Office Visit [facility] Primary Care [address] [place] [address] Mainor Welch MD [address] [place] [phone] documented as of this encounter Visit Diagnoses Not on filedocumented in this encounter Care Teams Line Up Machine Operator Relationship Specialty Start Date End Date Mainor Welch MD PCP - General 10/09/07 documented as of this encounter
--- OUTSIDE RECORDS SUMMARY | 2024-06-28 00:38 | XMS_ITS | Clinical Summary ---
Author Organization [facility] Address [address] [place] [address] Care Team Providers Care Accounting Practice Manager Name Role Phone Mainor Welch MD Primary Care Provider [phone] Allergies Active Allergy Reactions Criticality Noted Date Comments No Known Allergies 02/21/2007 Medications omeprazole (PriLOSEC) 10 mg Capsule, Delayed Release(E.C.) Take 20 mg by mouth daily. Active calcium as carbonate (TUMS) 500 mg (200 mg elemental) Tablet, Chewable Take by mouth. Activ e clotrimazole-b etamethasone (Lotrisone) 1-0.05 % Cream Apply to affected area 2 times daily. Chest bid 45 Gram 2 12/22/19 22 Active valACYclovir (VALTREX) 500 mg tablet Take 1 Tablet (500 mg) by mouth 2 times daily. 30 Tablet 3 09/03/19 23 Active zolpidem (Ambien) 10 mg tabletIndicati ons:Other insomnia Take 1 Tablet (10 mg) by mouth nightly as needed for Insomnia. 90 Tablet 3 03/21/20 23 Active zolpidem (AMBIEN) 10 mg tabletIndicati ons:Other insomnia TAKE 1 TABLET(10 MG) BY MOUTH EVERY NIGHT NEEDED FOR INSOMNIA 30 Tablet 3 12/26/19 24 Active prochlorperazi ne maleate (COMPAZINE) 10 mg tablet Take 1 Tablet (10 mg) by mouth every 6 hours as needed for Nausea. 30 Tablet 1 03/06/20 24 Active tirzepatide, weight loss, (Zepbound) 7.5 mg/0.5 mL Pen Injector Inject 7.5 mg by subcutaneous injection every 7 days. 2 mL 3 03/06/20 24 Active thiamine (VITAMIN B-1) 100 mg tablet Take 1 Tablet (100 mg) by mouth daily. 90 Tablet 3 05/17/19 25 Active ALPRAZolam (XANAX) 0.25 mg tabletIndicati ons:Generalize d anxiety disorder TAKE 1 TABLET(0.25 MG) BY MOUTH TWICE DAILY NEEDED FOR ANXIETY 60 Tablet 3 06/17/19 25 Active buPROPion HCL (WELLBUTRIN XL) 150 mg Extended Release 24 hour tabletIndicati ons:Depressive disorder TAKE 1 TABLET(150 MG) BY MOUTH DAILY IN THE MORNING 90 Tablet 3 06/25/19 25 Active buPROPion HCL (WELLBUTRIN XL) 150 mg Extended Release 24 hour tabletIndicati ons:Depressive disorder TAKE 1 TABLET(150 MG) BY MOUTH DAILY IN THE MORNING 90 Tablet 3 06/02/19 24 025 Discontinued ALPRAZolam (XANAX) 0.25 mg tabletIndicati ons:Generalize d anxiety disorder TAKE 1 TABLET(0.25 MG) BY MOUTH TWICE DAILY NEEDED FOR ANXIETY 60 Tablet 3 10/02/19 24 025 Discontinued Active Problems Patient Care Coordination No te [...] Encounters Date Type Department Care Team Description 06/26/2024 External Device Data STL ABSTRACTION Provider, Abstract 06/23/2024 [facility] Primary Care [address] [place] [address] Mainor Welch MD Depressive disorder 06/18/2024 Orders Only [facility] [address] [place] [address] Provider, Abstract 06/17/2024 Telephone [facility] [address] [place] [address] Mainor Welch MD Provider Call 06/17/2024 Refill [facility] [address] [place] [address] [address] [place] [address] Mainor Welch MD Generalized anxiety disorder 06/12/2024 External Device Data STL ABSTRACTION Provider, Abstract 05/16/2024 External Device Data STL ABSTRACTION Provider, Abstract 05/14/2024 Telephone [facility] [address] [place] [address] Mainor Welch MD Patient Communication 05/14/2024 Results Follow-Up [facility] [address] [place] [address] Mainor Welch MD CBC WITH DIFFERENTIAL, COMPREHENSIVE [...] on file Legal Sex Female 5:28 AM TRAPPER BIRD Gender Identity Not on file Sexual Orientation Not on file Last Filed Vital Signs Vital Sign Reading Time Taken Comments Blood Pressure 128/80 03/06/2024 2:46 PM TRAPPER BIRD Pulse 94 03/06/2024 2:46 PM TRAPPER BIRD Temperature 37.1 C (98.8 F) 02/25/2022 1:18 PM CDT Respiratory Rate 12 05/31/2021 12:12 PM TRAPPER BIRD Oxygen Saturation 98% 03/06/2024 2:46 PM TRAPPER BIRD Inhaled Oxygen Concentration - - Weight 73.5 kg (162 lb) 03/06/2024 2:46 PM TRAPPER BIRD Height 170.2 cm (5' 7 ) 03/06/2024 2:46 PM TRAPPER BIRD Body Mass Index 25.37 03/06/2024 2:46 PM TRAPPER BIRD Plan of Treatment Upcoming Encounters Date Type Department Care Team (Late st Contact Info) Description 09/10/2024 3:20 PM CDT Office Visit [facility] Primary Care [address] [place] [address] Mainor Welch MD [address] [place] [address] [place] [address] Health Maintenance Due Date Last Done Comments HEPATITIS B VACCINES (1 of 3 - 19+ 3-dose series) 08/22/1990 FIT-DNA Q 3 years 08/22/2016 FIT/FOBT Q 1 year 08/22/2016 Flex Sig/CT Colonography Q 5 years 08/22/2016 ZOSTER VACCINE (1 of 2) 08/22/2021 CERVICAL CANCER SCREENING 12/04/20232020, 03/02/2018, 03/02/2018 BREAST CANCER SCREENING 12/24/2023 12/24/19 23, 06/14/2022, 09/30/2021, Additional history exists COVID-19 Vaccine (3 - 2023-2 5 season) 2023 05/25/2021, 07/22/2020 Preventative Visit- Commercial 04/24/2024 0 09/19/2023, 09/02/2022, 08/20/2021, Additional history exists Pre-Diabetes and Diabetes Screening 09/02/2025 09/02/2022 COLORECTAL SCREENING 05/31/2031 05/31/2021, 05/31/19 Colorectal Cancer Screening 05/31/2031 DTAP/TDAP/TD VACCINES (3 - T d or Tdap) 08/21/2031 08/20/2021, 03/13/2012 INFLUENZA VACCINE Completed 02/23/2024, , 03/21/2023, Additional history exists Procedures Procedure Name Priority Date/Time Associated Diagnosis Comments ALBUMIN LEVEL Routine 06/12/2024 2:24 PM TRAPPER BIRD CBC WITH DIFFERENTIAL Routine 06/12/2024 2:24 PM TRAPPER BIRD VITAMIN D 25 HYDROXY Routine 05/11/2024 7:32 AM TRAPPER BIRD Vitamin D deficiency VITAMIN B12 LEVEL Routine 05/11/2024 7:3 2 AM TRAPPER BIRD Vitamin B12 deficiency (non anemic) VITAMIN B1 LEVEL Routine 05/11/2024 7:32 AM TRAPPER BIRD Vitamin B12 deficiency (non anemic) TSH Routine 05/11/2024 7:32 AM TRAPPER BIRD Other hyperlipidemia LIPID PANEL Routine 05/11/2024 7:32 AM TRAPPER BIRD Other hyperlipidemia IRON, TIBC, AND PERCENT SATURATION Routine 05/11/2024 7:32 AM TRAPPER BIRD History of iron deficiency COMPREHENSIVE METABOLIC PANEL Routine 05/11/2024 7:32 AM TRAPPER BIRD Other hyperlipidemia CBC WITH DIFFERENTIAL Routine 05/11/2024 7:32 AM TRAPPER BIRD History of iron deficiency MAMMO 3D JERILYN SCREEN BILAT W OR WO CAD Routine 12/23/2022 8:06 AM CDT Breast cancer screening by mammogram HEMOGLOBIN A1C Routine 09/02/2022 10:59 AM CDT Encounter for routine adult health examination with abnormal findings COLONOSCOPY REPORT 05/31/2021 12 :06 PM TRAPPER BIRD CERV/VAG CYTO AGE BASED SCREEN PAP Routine 12/03/2020 4:13 PM CDT Well woman exam with routine gynecological exam from Last 3 Months or Most Recently Relevant to Health Maintenance Results * CBC WITH DIFFERENTIAL (06/12/2024 2:24 PM TRAPPER BIRD) Only the most recent of2 resultswithin the time period is included. ABSTRACTED WBC 7..2 4.5 - 10.0 EXTERNAL LAB ABSTRACTED RBC EXTERNAL LAB ABSTRACTED HEMOGLOBIN 13.3 12.0 - 15.0 EXTERNAL LAB ABSTRACTED HEMATOCRIT EXTERNAL LAB ABSTRACTED MCV EXTERNAL LAB ABSTRACTED PLATELETS 191 150 - 375 EXTERNAL LAB ABSTRACTED NEUTROPHIL ABSOLUTE EXTERNAL LAB ABSTRACTED LYMPHOCYTE ABSOLUTE EXTERNAL LAB Blood 06/12/2024 2:24 PM TRAPPER BIRD us Abstract Provider HEMATOLOGY ORDERABLES Edited R esult - Final EXTERNAL LAB * ALBUMIN LEVEL (06/12/2024 2:24 PM TRAPPER BIRD) ALBUMIN 4.4 3.5 - 5.1 g/dL EXTERNAL LAB PREALBUMIN 25.7 17.6 - 36.0 mg/dL EXTERNAL LAB Blood 06/12/2024 2:24 PM TRAPPER BIRD us Abstract Provider CHEMISTRY ORDERABLES Final Res ult EXTERNAL LAB * IRON, TIBC, AND PERCENT SATURATION (05/11/2024 7:32 AM TRAPPER BIRD) IRON 67 45 - 160 mcg/dL [facility] TIBC 311 250 - 450 mcg/dL (calc) [facility] IRON % SATURATION 22 16 - 45 % (calc) [facility] Comment: FASTING:YES FASTING: YES Test Performed at: [facility] [address] [facility] [place] [address] Danyelle Villasenor MD Blood 05/11/2024 7:32 AM TRAPPER BIRD 05/11/2024 7:32 AM TRAPPER BIRD Mainor Welch MD CHEMISTRY ORDERABLES Final Re sult [facility] [phone] [facility] [address] [facility] [place] [address] * VITAMIN D 25 HYDROXY (05/11/2024 7:32 AM TRAPPER BIRD) Pathologist [facility] VITAMIN D, 25 OH, TOTAL 87 30 - 100 ng/mL [facility] Comment: Vitamin D Status 25-OH Vitamin D: Deficiency: <20 ng/mL Insufficiency: 20 - 29 ng/mL Optimal: > or = 30 ng/mL For 25-OH Vitamin D testing on patients on D2-supplementation and patients for whom quantitation of D2 and D3 fractions is required, the [facility]TM) 25-OH VIT D, (D2,D3), LC/MS/MS is recommended: order code 80554 (patients >2yrs). See Note 1 Note 1 For additional information, please refer to http://education.Invite Media/faq/ITA110 (This link is being provided for informational/ educational purposes only.) FASTING:YES FASTING: YES Test Performed at: [facility] [address] [facility] [place] [address] Danyelle Villasenor MD Blood 05/11/2024 7:32 AM TRAPPER BIRD 05/11/2024 7:32 AM TRAPPER BIRD Mainor Welch MD CHEMISTRY ORDERABLES Final Re sult [facility] [phone] [facility] [address] [place] [address] * TSH (05/11/2024 7:32 AM TRAPPER BIRD) TSH 2.59 mIU/L [facility] Comment: Reference Range > or = 20 Years 0.40-4.50 Ranges First trimester 0.26-2.66 Second trimester 0.55-2.73 Third trimester 0.43-2.91 FASTING:YES FASTING: YES Test Performed at: [place] [address] [place] [address] Danyelle Villasenor Blood 05/11/2024 7:32 AM TRAPPER BIRD 05/11/2024 7:32 AM TRAPPER BIRD Mainor Welch MD CHEMISTRY ORDERABLES Final Re sult [facility] [phone] [place] [place] [address] * (ABNORMAL) VITAMIN B1 LEVEL (05/11/2024 7:32 AM TRAPPER BIRD) VITAMIN B1 52(L) 78 - 185 nmol/L [facility] Comment: (Note) Vitamin supplementation within 24 hours prior to blood draw may affect the accuracy of the results. This test was developed and its analytical performance characteristics have been determined by [facility]. It has not been cleared or approved by FDA. This assay has been validated pursuant to the CLIA regulations and is used for clinical purposes. [facility] [employer] [facility] [address] [facility] [place] [place] [address],[address] [facility] [address] Kerline Hanson MD, PhD FASTING:YES FASTING: YES Test Performed at: [facility] [address] [facility] [address] [place] [address] Kerline Hanson MD,PhD Blood 05/11/2024 7:32 AM TRAPPER BIRD 05/11/2024 7:32 AM TRAPPER BIRD Mainor Welch MD CHEMISTRY ORDERABLES Final Re sult Performing Organization Address City/[facility]/ZIP Co de Phone Number [facility] [phone] [facility] [address] [facility] [address], [address] [place] [address] * VITAMIN B12 LEVEL (05/11/2024 7:32 AM TRAPPER BIRD) VITAMIN B12 569 200 - 1100 pg/mL [facility] Comment: FASTING:YES FASTING: YES Test Performed at: [facility] [id number] [place] [address] Danyelle Villasenor MD Blood 05/11/2024 7:32 AM TRAPPER BIRD 05/11/2024 7:32 AM TRAPPER BIRD Mainor Welch MD CHEMISTRY ORDERABLES Final Re sult Performing Organization Address [facility] Co de Phone Number [facility] [phone] [facility] [address] [place] [address] * (ABNORMAL) LIPID PANEL (05/11/2024 7:32 AM TRAPPER BIRD) CHOLESTEROL 186 <200 mg/dL [facility] HDL 72 > OR = 50 mg/dL [facility] TRIGLYCERIDE 48 <150 mg/dL [facility] LDL CALCULATED 100(H) mg/dL (calc) [facility] Comment: Reference range: <100 Desirable range <100 mg/dL for primary prevention; <70 mg/dL for patients with CHD or diabetic patients with > or = 2 CHD risk factors. LDL-C is now calculated using the Ana calculation, which is a validated novel method providing better accuracy than the Friedewald equation in the estimation of LDL-C. Sunday SANTAMARIA et al. ZORAIDA. 2013;310(19): 7173-3109 (http://education.Invite Media/faq/GDG543) CHOL/HDL RATIO 2.6 <5.0 (calc) [facility] NON-HDL CHOLESTEROL 114 <130 mg/dL (calc) [facility] Comment: For patients with diabetes plus 1 major ASCVD risk factor, treating to a non-HDL-C goal of <100 mg/dL (LDL-C of <70 mg/dL) is considered a therapeutic option. Test Performed at: [place] [address] [place] [address] Danyelle Villasenor Blood 05/11/2024 7:32 AM TRAPPER BIRD 05/11/2024 7:32 AM TRAPPER BIRD us Mainor Welch MD CHEMISTRY ORDERABLES Final Re sult [facility] [phone] [facility] [place] [address] [place] [address] * COMPREHENSIVE METABOLIC PANEL (05/11/2024 7:32 AM TRAPPER BIRD) GLUCOSE 87 65 - 99 mg/dL [facility] Comment: Fasting reference interval BUN 15 7 - 25 mg/dL [facility] CREATININE 0.83 0.50 - 1.03 mg/dL [facility] GFR 85 > OR = 60 mL/min/1. 73m2 [facility] Kimberly [facility] BUN/CREAT RATIO SEE NOTE: 6 - 22 (calc) [facility] Comment: Not Reported: BUN and Creatinine are within reference range. SODIUM 139 135 - 146 mmol/L [facility] POTASSIUM 3.8 3.5 - 5.3 mmol/L [facility] CHLORIDE 104 98 - 110 mmol/L [facility] CO2 27 20 - 32 mmol/L [facility] CALCIUM 9.1 8.6 - 10.4 mg/dL [facility] TOTAL PROTEIN 6.3 6.1 - 8.1 g/dL [facility] ALBUMIN 4.1 3.6 - 5.1 g/dL [facility] GLOBULIN 2.2 1.9 - 3.7 g/dL (calc) [facility] ALBUMIN/GLOBULIN RATIO 1.9 1.0 - 2.5 (calc) [facility] BILIRUBIN TOTAL 0.4 0.2 - 1.2 mg/dL [facility] ALKALINE PHOSPHATASE 50 37 - 153 U/L [facility] AST 17 10 - 35 U/L [facility] ALT 10 6 - 29 U/L [facility] Comment: FASTING:YES FASTING: YES Test Performed at: [place] [address] [place] [address] [facility] Blood 05/11/2024 7:32 AM TRAPPER BIRD 05/11/2024 7:32 AM TRAPPER BIRD us Mainor Welch MD CHEMISTRY ORDERABLES Final Re sult [facility] [phone] [place] [address] [place] [address] * MAMMO SCRN BILAT 3D JERILYN W [...] masses, calcifications, or areas of architectural distortion. us Mainor Welch MD MAMMO ORDERABLES Final Result * HEMOGLOBIN A1C (09/02/2022 10:59 AM CDT) HEMOGLOBIN A1C 5.0 <5.7 % of total Hgb [facility] Comment: For the purpose of screening for the presence of diabetes: <5.7% Consistent with the absence of diabetes 5.7-6.4% Consistent with increased risk for diabetes (prediabetes) > or =6.5% Consistent with diabetes This assay result is consistent with a decreased risk of diabetes. Currently, no consensus exists regarding use of hemoglobin A1c for diagnosis of diabetes in children. According to [place] Diabetes Association (ADA) guidelines, hemoglobin A1c <7.0% represents optimal control in non- diabetic patients. Different metrics may apply to specific patient populations. Standards of Medical Care in Diabetes(ADA). ESTIMATED AVERAGE GLUCOSE (MG/DL) 97 mg/dL [facility] ESTIMATED AVERAGE GLUCOSE (MMOL/L) 5.4 mmol/L [facility] Comment: Test Performed at: [place] [address] [place] [address] [facility] Blood 09/02/2022 10:5 9 AM CDT 09/02/2022 11:00 AM CDT us Mainor Welch MD CHEMISTRY ORDERABLES Final Re sult [facility] [phone] [facility] [place] [address] [place] [address] * COLONOSCOPY REPORT (05/31/2021 12:06 PM TRAPPER BIRD) Narrative Procedure Note Luis Crowe MD - 05/31/2021 12:05 PM CST [facility] Endoscopy Patient Name: Sony [...] Addenda: 0 Procedure Date: 05/31/2021 11:33:[address] [place] [address] us Luis Crowe MD GI PROCEDURE ORDERABLES Final R esult * CERV/VAG CYTO AGE BASED SCREEN PAP (12/03/2020 4:13 PM CDT) COMMENT (PAP): [facility] Comment: This order for age-based cervical cancer and STI screening follows ACOG guidelines(PB 168, 140, QGQ535). See individual assays for performing site location. CLINICAL INFORMATION [facility] Comment:Information not prov ided LAST MENSTRUAL PERIOD [facility] Comment:INFORMATION NOT PROV IDED PREV PAP: [facility] Comment:INFORMATION NOT PROV IDED PREV BX: [facility] Comment:INFORMATION NOT PROV IDED SOURCE [facility] Comment:Endocervix ADEQUACY: [facility] Comment: Satisfactory for evaluation. Endocervical/transformation zone component present. Age and/or menstrual status not provided PAP INTERP [facility] Comment:Negative for intraep ithelial lesion or malignancy. CYTOLOGY INFECTION [facility] Comment: Shift in vaginal perfecto suggestive of bacterial vaginosis. COMMENT [facility] Comment: This Pap test has been evaluated with computer assisted technology. BURNISHER: [facility] Comment: MMW, CT(ASCP) CT screening location: [place] [address] [place] [address] EXPLANATORY NOTE [facility] Comment: EXPLANATORY NOTE: The Pap is a [...] information. HPV E6/E7 Not Detected Not Detected [facility] Comment: Methodology: Video Game Repair Technician-Mediated Amplification This assay detects E6/E7 viral messenger RNA (mRNA) from 14 high-risk HPV types (16,18,31,33,35,39,45,51,52,56,58,59,66,68). The analytical performance characteristics of this assay have been determined by [facility]. The modifications have not been cleared or approved by the FDA. This assay has been validated pursuant to the CLIA regulations and is used for clinical purposes. For additional information, please refer to http://education.astamuse company, ltd..Pure Storage/faq/WCO167i5 (This link if provided for information/ educational purposes only.) Test Performed at: [facility] [address] [place] [address] Miles Garibay D.O., MPH SL Genital SWAB OF ENDOCERVIX / Unknown 12/03/2020 4:13 PM CDT 12/03/2020 11:46 PM CDT Tara Self NP PATHOLOGY/CYTOLOGY ORDERABLES Fi nal Result [facility] [address] [place] [address] from Last 3 Months or Most Recently Relevant to Health Maintenance Insurance winter [place] [id number] [facility] FEDERAL Advance Directives For more information, please contact: [phone] * Full Code (Latest Code Status on File) Date Activated Date Inactivated Comments 05/31/2021 11:04 AM 05/31/2021 2:31 PM Care Teams Accounting Practice Manager Relationship Specialty Start Date End Date Mainor Welch MD PCP - General 10/09/07
--- OUTSIDE RECORDS SUMMARY | 2024-06-28 00:38 | XMS_ITS | Encounter Summary ---
Author Organization [facility] Address [address] [place] [address] Care Team Providers Care Family Service Worker Name Role Phone Mainor Welch MD Primary Care Provider [phone] Encounter Details Date Type Department Care Team (Late st Contact Info) Description 05/22/2007 Orders Only [facility] Internal Medicine [address] [address] Mainor Welch MD [address] [place] [address] Social History Tobacco Use Types Packs/Day Years Used Date Smoking Tobacco: Never Assessed Comments Unknown Sex and Gender Information Value Date Recorded Sex Assigned at Not on file Legal Sex Female 5:28 AM TOWEL SEWER Gender Identity Not on file Sexual Orientation Not on file documented as of this encounter Progress Notes * Mainor Welch MD - 09/05/2007 9:05 PM CDT TIME:08:45 am PATIENT`S HOME PHONE: PATIENT`S WORK PHONE: PATIENT`S INSURANCE: [employer] WHO TOOK THE CALL: Ila Dunn C GENERAL INFORMATION ALTERNATIVE PHONE NUMBER: [phone] WHO CALLED: Patient called. Patient reports no known allergies. 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
--- OUTSIDE RECORDS SUMMARY | 2024-06-28 00:38 | XMS_ITS | Encounter Summary ---
Author Organization [facility] Address 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
--- OUTSIDE RECORDS SUMMARY | 2024-06-28 00:38 | XMS_ITS | Encounter Summary ---
Author Organization [facility] Address 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
--- OUTSIDE RECORDS SUMMARY | 2024-06-28 00:38 | XMS_ITS | Clinical Summary ---
Author Organization [facility] [address] Address [address] [place] [id number] Care Team Providers Care Billing Representative Name Role Phone Mainor Welch MD Primary [...] on file Legal Sex Female 12:51 PM DIRECTOR COMPENSATION Gender Identity Not on file Sexual Orientation Not on file Obstetrics History Last Filed Vital Signs Vital Sign Reading Time Taken Comments Blood Pressure 110/64 06/02/2023 11:01 AM DIRECTOR COMPENSATION Pulse 70 06/02/2023 11:01 AM DIRECTOR COMPENSATION Temperature 36.9 C (98.5 F) 06/02/2023 11:01 AM DIRECTOR COMPENSATION Respiratory Rate 21 06/02/2023 11:01 AM DIRECTOR COMPENSATION Oxygen Saturation 97% 06/02/2023 11:01 AM DIRECTOR COMPENSATION Inhaled Oxygen Concentration - - Weight 90.7 kg (200 lb) 06/02/2023 11:01 AM DIRECTOR COMPENSATION Height 170.2 cm (5' 7 ) 06/02/2023 11:01 AM DIRECTOR COMPENSATION Body Mass Index 31.32 06/02/2023 11:01 AM DIRECTOR COMPENSATION Plan of Treatment Health Maintenance Due Date [...] age to complete this topic [place] [id number] [employer] [facility] [employer] Care Teams Billing Representative Relationship Specialty Start Date End Date Mainor Welch MD PCP - General Internal Medicine 01/07/21
--- NOTE | 2024-06-28 06:55 | WPDANESEPPF ---
Anes - Initial Pre Proc Eval Procedure: Operation Date: 06/28/24 07:30 Proposed Procedures p Abdominoplasty with Liposuction, - Ten Alfred MD s Bilateral Brachioplasty with Liposuction - Ten Alfred MD Date/Time: 06/28/24 06:55 Surgeon: Ten Alfred MD Pre Op Diagnosis: Skin Laxity Patient Data Age: 53 Gender: F Height: 1.7 m Weight: 68.2 kg Allergies Allergy/AdvReac Type Severity Reaction Status Date / Time No Known Allergies Allergy Unverified 06/06/24 13:14 Home Medications ?Medication ?Instructions ?Recorded ?Confirmed ?Type alprazolam 0.25 mg tablet 0.25 mg PO QID PRN anxiety 06/06/24 06/06/24 History bupropion HCl 150 mg 24 hr tablet, 150 mg PO DAILY 06/06/24 06/06/24 History extended release calcium carbonate (Oyster Shell 500 mg PO DAILY 06/06/24 06/06/24 History Calcium) vzralwjehpuh-Xy-hxdr-minerals 18 1 tablet PO DAILY 06/06/24 06/06/24 History mg-0.4 mg tablet thiamine HCl (vitamin B1) 100 mg 100 mg PO DAILY 06/06/24 06/06/24 History tablet zolpidem 10 mg tablet 10 mg PO HS PRN insomnia 06/06/24 06/06/24 History Laboratory Tests 06/28/24 06:24 Cotinine Pending Patient hx anesthesia problems: post op nausea/vomiting Family hx anesthesia problems: none Results Review: All pre-operative results and documents have been reviewed as part of the pre-operative evaluation. FOR[facility]LY [facility], [facility] Past Medical History Medical History (Updated 06/28/24 @ 06:56 by Ray Newberry DO) Depression Anxiety Social History Social History (System 03/01/24 @ 09:29 by Aniya Yoon) Smoking status: Never smoker Alcohol intake: current Living arrangements: with family Spiritual care concerns: No Anes - Eval Final PreProcedure Day of Procedure 06/28/24 06:55 Patient weight: normal Heart: regular rate and rhythm Lungs: clear to auscultation Airway: Mallampati scale class II Neurological: alert and oriented Last oral intake: >/= 8 hours ASA classification: II Emergent: no Anesthetic plan: proceed Anesthesia type and monitoring: general ETT and standard monitoring Results Review: All pre-operative results and documents have been reviewed as part of the pre-operative evaluation. Informed Consent: The patient's anesthetic plan and its attendant risks and benefits were discussed with the patient/family/POA. Questions were solicited and answers provided to the satisfaction of the patient/family/POA.
--- NOTE | 2024-06-28 06:58 | WPDHPUPDATE1 ---
History and Physical Update Update Date/Time: 06/28/24 06:58 History and Physical has been reviewed, including an updated exam of the patient. There are NO changes in the patient's condition. Risks, benefits, and alternatives have been discussed and questions answered. Patient agrees to proceed with procedure.
--- NOTE | 2024-06-28 06:58 | W.PM.PROC2 ---
Procedure Note - Detailed Date of Procedure 06/28/24 Pre-op Diagnosis Skin Laxity Post-op Diagnosis Same Procedure Performed 1. Progressive tension abdominoplasty with suction lipectomy 2. Bilateral brachioplasty Surgeon Ten Alfred MD Anesthesia General Findings Tissue removed: 1261 grams Lipoaspirate: 3,000 cc Description of Procedure They are here today for the above procedures. Previously and again today the risks, benefits, alternatives were discussed in extensive detail. I wanted them to be very realistic about the risks involved as well as expectations. We discussed aftercare and what to monitor for. I was very upfront about the risks of wound breakdown leading to loss of skin, open wounds, and need for additional procedures with permanent abdominal deformity. We discussed DVT/PE risks and management. Made sure answered all of their questions to their satisfaction today and consent was obtained. They were marked in the preoperative holding area with their verification. The patient was taken to the operating room. Anesthesia was provided by anesthesiology. A Calderon catheter was started. Posterior Placed prone on the operating room table with care taken to protect from injury. Prepped and draped in a standard sterile fashion. A surgical time-out was taken. Stab incisions were made and tumescent solution was infiltrated. Once adequate time was allowed for hemostasis a 5mm basket and 4mm reji cannula were utilized to complete suction lipectomy based on S.A.F.E. technique in multiple planes and passes. Suction lipectomy continued to result based on pre-operative planning, intra-operative observation, and rolling pinch test which were in full agreement. Arms Patient was then placed supine with care taken to protect from injury. Prepped and draped in a standard sterile fashion. Stab incisions were made and I tumesced with a tumescent solution. Once adequate time for hemostasis suction lipectomy was with a 4 mm basket cannula based on S.A.F.E. technique. This was completed based on preoperative planning, intraoperative observation, and rolling pinch test which was in full agreement. I completely de-fatted the planned resection area and a strip avulsion technique was completed. Starting proximal to distal a 10 blade was used to excise the intervening skin and this was tacked as we proceed to ensure good closure. This was closed using a 2-0 Quill, 3-0 strata fix, running subcuticular 4-0 Monocryl, and tissue glue. Abdomen I placed the patient in a flexed position to verify the upper and lower markings would reach. I then placed supine. A thorough abdominal examination was completed. Stab incisions were made and tumescent solution infiltrated. Stab incisions were made and tumescent solution was infiltrated. Once adequate time was allowed for hemostasis a 5mm basket and 4mm reji cannula were utilized to complete suction lipectomy based on S.A.F.E. technique in multiple planes and passes. Suction lipectomy continued to result based on pre-operative planning, intra-operative observation, and rolling pinch test which were in full agreement. A 10 blade was used to make the upper incision. I continued dissection down to the level of fascia. Elevated just what was necessary for repair of the diastasis. I then again flexed the bed to verify the upper skin flap would reach the lower markings without tension. Once verified I placed her supine once again and a 10 blade used to make the lower incision. I elevated up to level the umbilicus and left the umbilicus intact on a well-vascularized stalk. The intervening tissue was removed. A 2 mm blunt cannula with 0.5% bupivacaine was injected deep to the fascia bilaterally. I plicated the diastasis recti using 0 PDO Stratafix barbed suture. This was in 2 separate layers using 2 separate sutures as well. After the patient was flexed (below) plicated the fascia with 0 PDO Stratafix in two separate layers. The patient was flexed and starting from superior to inferior began plication using 2-0 Vicryl to obliterate all space in a standard progressive tension fashion. At the umbilicus I marked out the location of the skin and inset this with 3-0 Monocryl and 4-0 Vicryl. I continued the remainder of the plication using 2-0 Vicryl until I reached my lower planned scar line. I trimmed any excess skin of the upper flap making sure this was a tension-free closure. 15 Dave drain was placed. I then approximated using a 3 point suture with 2-0 Vicryl followed by 2-0 PDO Stratafix, 3-0 Stratafix ,running subcuticular 4-0 Monocryl, and tissue glue. Dressings were placed. The patient was transferred to the bed in a flexed position. [place] and taken to the PACU without difficulty. All instrument and sponge counts were correct at the end of the case. Estimated Blood Loss 100 Drains Yes (15 Dave) Packing No Pathology None sent Complications No immediate complications Condition Stable Disposition PACU
[2024-06-28 07:00] LABS: Urine Cotinine NEGATIVE
[2024-06-28] MEDS: LACTATED RINGERS 1,000 ML 30 ML IV CONT ×3 (07:00→14:07)
[2024-06-28] MEDS: TRANEXAMIC ACID 1,000MG/ISO100 1,000 MG/100 ML BAG 200 MG IVPB (07:36)
[2024-06-28] MEDS: ceFAZolin 2 GM/D5W 50 ML 2 GM/50 ML BAG IVPB (08:00)
[2024-06-28] MEDS: LACTATED RINGERS IRRIG 1,000 ML, LIDOCAINE 1% LOCAL INJ 50 ML, EPINEPHrine HCL INJ 1 MG... INFILTRATE (08:22)
[2024-06-28] MEDS: BUPIVACAINE/EPINEPHRINE 0.5% 50 ML VIAL 60 ML INFILTRATE (08:27)
[2024-06-28] MEDS: ceFAZolin 1 GM/NS 50 ML 1 GM/50 ML BAG IVPB (11:53)
[2024-06-28] MEDS: ONDANSETRON INJ 4 MG/2 ML VIAL IV PUSH (14:44)
[2024-06-28] MEDS: fentaNYL CITRATE INJ (*CRX) 100 MCG/2 ML VIAL 25 MCG IV PUSH ×4 (14:48→15:20)
[2024-06-28] MEDS: oxyCODONE HCL (*CRX) 5 MG TAB IR PO (16:30)
== END 2024-06-28 17:15 | disposition home or self-care (01) ==
PROVIDERS: PCP Internal Medicine; Visit Provider Surgery Plastic and Reconstructive Surgery
PROC: (CPT 15877; principal; 2024-06-28 07:30)
PROC: (CPT 15836; 2024-06-28 07:30)
DX: Z41.1 Encounter for cosmetic surgery (principal); L57.4 Cutis laxa senilis
CPT/HCPCS: 15877; 15830; 15847; 15836; 15878; 80307; A9270; J0171; J0690; J1100; J1171; J1200; J2003; J2250; J2405; J2704; J3010; J7120

== ENCOUNTER 2025-03-14 13:01 | Outpatient (CLI) | payer OTHER, SELFPAY ==
--- OUTSIDE RECORDS SUMMARY | 2025-03-14 13:05 | XMS_ITS | Encounter Summary ---
Author Organization [facility] Address [address] [place] [address] Care Team Providers Care Team Guide Name Role Phone Mainor Welch MD Primary Care Provider Reason for Visit * Reason Comments Provider Call Encounter Details Date Type Department Care Team (Late st Contact Info) Description 06/17/2024 Telephone [facility] Primary Care [address] [place] [address] Mainor Welch MD [address] [place] [address] [address] [place] [address] Provider Call Social History Tobacco Use Types Packs/Day Years Used Date Smoking Tobacco: Never Passive Smoke Exposure: Never Smokeless Tobacco: Never Alcohol Use Standard Drinks/Week Comments Yes 0 (1 standard drink = 0.6 oz pur e alcohol) occ. Comments No Sex and Gender Information Value Date Recorded Sex Assigned at Not on file Legal Sex Female 5:28 AM MASTER IN CHANCERY Gender Identity Not on file Sexual Orientation Not on file documented as of this encounter Miscellaneous Notes * Telephone Encounter - Patti Kyle - 06/18/2024 9:47 AM CST Results are entered and scanned into chart for review. ER IN CHANCERY * Telephone Encounter - Sarah Morales - 06/17/2024 3:48 PM CST Copied from [facility] #[id number]. Topic: [id number] Call >> Jun 17, 2024 3:46 PM Sarah Contreras wrote: Caller is requesting to speak with Clinical Care Team. Caller Name: Dr. Tima Devi's Office Callback Number: [phone] Clinician Type: Other healthcare professional not listed above Call Notes: states she is sending pts labs over for review by PCP, FYI Is this addressing an immediate patient care need? No ER IN CHANCERY documented in this encounter Plan of Treatment Upcoming Encounters Date Type Department Care Team (Late st Contact Info) Description 03/27/2025 3:00 PM MASTER IN CHANCERY Office Visit [facility] [place] [address] Mainor Welch MD [address] [place], [place] [phone] documented as of this encounter Procedures Procedure Name Priority Date/Time Associated Diagnosis Comments ALBUMIN LEVEL Routine 06/12/2024 2:24 PM MASTER IN CHANCERY documented in this encounter Results * ALBUMIN LEVEL (06/12/2024 2:24 PM MASTER IN CHANCERY) ALBUMIN 4.4 3.5 - 5.1 g/dL EXTERNAL LAB PREALBUMIN 25.7 17.6 - 36.0 mg/dL EXTERNAL LAB Blood 06/12/2024 2:24 PM MASTER IN CHANCERY us Abstract Provider CHEMISTRY ORDERABLES Final Res ult EXTERNAL LAB documented in this encounter Visit Diagnoses Not on filedocumented in this encounter Care Teams Team Guide Relationship Specialty Start Date End Date Mainor Welch MD PCP - General 10/09/07 documented as of this encounter
--- OUTSIDE RECORDS SUMMARY | 2025-03-14 13:05 | XMS_ITS | Encounter Summary ---
Author Organization [facility] Address [address] [place] [address] Care Team Providers Care Crystal Slicer Name Role Phone Mainor Welch MD Primary Care Provider Encounter Details Date Type Department Care Team (Late st Contact Info) Description 02/21/2007 Outpatient Historical [facility] Internal Medicine [address] [address] Mainor Welch MD [address] [place] [address] [address] [place] [address] Social History Tobacco Use Types Packs/Day Years Used Date Smoking Tobacco: Never Assessed Comments Unknown Sex and Gender Information Value Date Recorded Sex Assigned at Not on file Legal Sex Female 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
--- OUTSIDE RECORDS SUMMARY | 2025-03-14 13:05 | XMS_ITS | Clinical Summary ---
Author Organization [facility] [address] Address [address] [place] [address] Care Team Providers Care Carrier Washer Name Role Phone Mainor Welch MD Primary [...] on file Legal Sex Female 12:51 PM DOG BATHER Gender Identity Not on file Sexual Orientation Not on file Last Filed Vital Signs Vital Sign Reading Time Taken Comments Blood Pressure 110/64 06/02/2023 11:01 AM DOG BATHER Pulse 70 06/02/2023 11:01 AM DOG BATHER Temperature 36.9 C (98.5 F) 06/02/2023 11:01 AM DOG BATHER Respiratory Rate 21 06/02/2023 11:01 AM DOG BATHER Oxygen Saturation 97% 06/02/2023 11:01 AM DOG BATHER Inhaled Oxygen Concentration - - Weight 90.7 kg (200 lb) 06/02/2023 11:01 AM DOG BATHER Height 170.2 cm (5' 7) 06/02/2023 11:01 AM DOG BATHER Body Mass Index 31.32 06/02/2023 11:01 AM DOG BATHER Plan of Treatment Health Maintenance Due Date Last Done Comments Cervical Cancer Screening 1971 Colon Cancer Screening-Colonoscopy 1971 Depression Screening 1971 Hepatitis C Screening 1971 Hepatitis B Screening 08/22/1989 Regular Well Visit/Exam 18-64 08/22/1989 Zoster Vaccine (1 of 2) 08/22/2021 Breast Cancer Screening-Mammogram 12/24/2023 12/23/2022, 12/23/2022, 09/15/2021, Additional history exists Covid-19 Vaccine (3 - 2024- season) 2024 05/25/2021, 07/22/2020 Influenza Vaccine (#1) 2024 , 01/22/2022, 04/02/2021, Additional history exists DTaP/Tdap/Td Vaccine (3 - Td or Tdap) 08/21/2031 08/20/2021, 03/13/2012 Pneumococcal vaccine <65 Aged Out No longer eligible based on patient's age to complete this topic Insurance [employer] [facility] [employer] Care Teams Carrier Washer Relationship Specialty Start Date End Date Mainor Welch MD PCP - General Internal Medicine 01/07/21
--- OUTSIDE RECORDS SUMMARY | 2025-03-14 13:06 | XMS_ITS | Encounter Summary ---
Author Organization [facility] Address [address] [place] [address] Care Team Providers Care Production Line Assembler Name Role Phone Mainor Welch MD Primary Care Provider [phone] Encounter Details Date Type Department Care Team (Late st Contact Info) Description 03/21/2007 Orders Only [facility] Internal Medicine [address] [address] Mainor Welch MD [address] [place] [phone] Social History Tobacco Use Types Packs/Day Years Used Date Smoking Tobacco: Never Assessed Comments Unknown Sex and Gender Information Value Date Recorded Sex Assigned at Not on file Legal Sex Female 5:28 AM PRODUCTION ENGINE REPAIRER Gender Identity Not on file Sexual Orientation [...] st Contact Info) Description 03/27/2025 3:00 PM PRODUCTION ENGINE REPAIRER Office Visit [facility] [place] [address] Mainor Welch MD [address] [place], [place] [phone] documented as of this encounter Visit Diagnoses Not on filedocumented in this encounter Care Teams Production Line Assembler Relationship Specialty Start Date End Date Mainor Welch MD PCP - General 10/09/07 documented as of this encounter
--- OUTSIDE RECORDS SUMMARY | 2025-03-14 13:06 | XMS_ITS | Encounter Summary ---
Author Organization [facility] Address [address] [place] [address] Care Team Providers Care Core Composer Machine Tender Name Role Phone Mainor Welch MD Primary Care Provider Encounter Details Date Type Department Care Team (Late st Contact Info) Description 05/22/[address] [facility] Internal Medicine [address] [address] Mainor Welch MD [address] [place] [phone] Social History Tobacco Use Types Packs/Day Years Used Date Smoking Tobacco: Never Assessed Comments Unknown Sex and Gender Information Value Date Recorded Sex Assigned at Not on file Legal Sex Female 5:28 AM STRAP MAKING MACHINE OPERATOR Gender Identity Not on file Sexual Orientation Not on file documented as of this encounter Progress Notes * Mainor Welch MD - 09/05/2007 9:05 PM CDT TIME:08:45 am PATIENT`S HOME PHONE: PATIENT`S WORK PHONE: PATIENT`S INSURANCE: [employer] WHO TOOK THE CALL: Ila Dunn C GENERAL INFORMATION ALTERNATIVE PHONE NUMBER: [phone] WHO CALLED: Patient called. Patient reports no known allergies. 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 Primary Care [place] [address] [place] [address] Mainor Welch MD [address] [place], [place] [phone] documented as of this encounter Visit Diagnoses Not on filedocumented in this encounter Care Teams Core Composer Machine Tender Relationship Specialty Start Date End Date Mainor Welch MD PCP - General 10/09/07 documented as of this encounter
--- OUTSIDE RECORDS SUMMARY | 2025-03-14 13:06 | XMS_ITS | Clinical Summary ---
Author Organization [facility] Address [address] [place] [address] Care Team Providers Care Corporate Claims Examiner Name Role Phone Mainor Welch MD Primary Care Provider [phone] Allergies Active Allergy Reactions Criticality Noted Date [...] for Insomnia. 90 Tablet 3 3 Active prochlorperazin e maleate (COMPAZINE) 10 mg tablet Take 1 Tablet (10 mg) by mouth every 6 hours as needed for Nausea. 30 Tablet 1 4 Active thiamine (VITAMIN B-1) 100 mg tablet Take 1 Tablet (100 mg) by mouth daily. 90 Tablet 3 5 Active buPROPion HCL (WELLBUTRIN XL) 150 mg Extended Release 24 hour tabletIndicatio ns:Depressive disorder TAKE 1 TABLET(150 MG) BY MOUTH DAILY IN THE MORNING 90 Tablet 3 5 Active zolpidem (AMBIEN) 10 mg tabletIndicatio ns:Other insomnia TAKE 1 TABLET(10 MG) BY MOUTH EVERY NIGHT NEEDED FOR INSOMNIA 30 Tablet 3 5 Active tirzepatide, weight loss, (Zepbound) 10 mg/0.5 mL SolutionIndicat ions:Obesity (BMI 30.0-34.9) Inject 0.5 mL (10 mg) by subcutaneous injection every 7 days. 2 mL 6 5 Active ALPRAZolam (XANAX) 0.25 mg tabletIndicatio ns:Generalized anxiety disorder TAKE 1 TABLET(0.25 MG) BY MOUTH TWICE DAILY NEEDED FOR ANXIETY 60 Tablet 3 5 Active Active Problems Patient Care Coordination No te Formatting of this note migh t be different from the original. Prev visit 09/10/24 Problem Noted Date Diagnosed Date Obesity (BMI 30.0-34.9) 03/21/2023 Vitamin B12 deficiency (non anemic) 10/29/2022 Genital herpes 04/04/2013 Essential hypertension, benign 11/09/2012 Insomnia 02/21/2007 Resolved Problems Problem Noted Date Diagnosed Date Resolved Date Abnormal weight gain 02/21/2007 014 Headache(784.0) 02/21/2007 10/19/2007 Elevated blood pressure read ing without diagnosis of hypertension 02/21/2007 11/09/2012 Encounters Date Type Department Care Team Description 03/11/2025 External Device Data STL ABSTRACTION Provider, Abstract 02/19/2025 External Device Data STL ABSTRACTION Provider, Abstract 02/12/2025 External Device Data STL ABSTRACTION Provider, Abstract 01/07/2025 External Device Data STL ABSTRACTION Provider, Abstract 12/19/2024 [facility] Primary Care [address] [place] [address] Mainor Welch MD Generalized anxiety disorder from Last 3 Months Immunizations Immunization Administration [...] on file Legal Sex Female 5:28 AM CORPORATE TRAINER Gender Identity Not on file Sexual Orientation Not on file Last Filed Vital Signs Vital Sign Reading Time Taken Comments Blood Pressure 116/77 09/10/2024 2:53 PM CDT Pulse 89 09/10/2024 2:53 PM CDT Temperature 37.1 C (98.8 F) 02/25/2022 1:18 PM CDT Respiratory Rate 12 05/31/2021 12:12 PM CORPORATE TRAINER Oxygen Saturation 99% 09/10/2024 2:53 PM CDT Inhaled Oxygen Concentration - - Weight 77.1 kg (170 lb) 09/10/2024 2:53 PM CDT Height 170.2 cm (5' 7) 09/10/2024 2:53 PM CDT Body Mass Index 26.63 09/10/2024 2:53 PM CDT Plan of Treatment Upcoming Encounters Date Type Department Care Team (Late st Contact Info) Description 03/27/2025 3:00 PM CORPORATE TRAINER Office Visit [facility] Primary Care [address] [place] [address] Mainor Welch MD [address] [facility] [address] [place] [address] Health Maintenance Due Date Last Done Comments HEPATITIS B VACCINES (1 of 3 - 19+ 3-dose series) 08/22/1990 FIT-DNA Q 3 years 08/22/2016 FIT/FOBT Q 1 year 08/22/2016 Flex Sig/CT Colonography Q 5 years 08/22/2016 ZOSTER VACCINE (1 of 2) 08/22/2021 PAP SMEAR 12/04/2023 12/03/2020, 12/2017, 03/02/2018 INFLUENZA VACCINE (#1) 2024 , 03/21/2023, 03/21/2023, Additional history exists COVID-19 Vaccine (2024-2 6 season) 2024 05/25/2021, 07/22/2020 Pre-Diabetes and Diabetes Screening 09/02/2025 09/02/2022 BREAST CANCER SCREENING 09/27/2025 09/28/19 25, 12/23/2022, 12/23/2022, Additional history exists CERVICAL CANCER SCREENING 12/03/2025 HPV/Cotest (21-29) 12/03/2025 12/03/2020, 03/02/2018 HPV/Cotest (30-65) 12/03/2025 12/03/2020, 03/02/2018 COLORECTAL SCREENING 05/31/2031 05/31/2021, 05/31/19 22 Colorectal Cancer Screening 05/31/2031 DTAP/TDAP/TD VACCINES (3 - T d or Tdap) 08/21/2031 08/20/2021, 03/13/2012 Preventative Visit- Commercial Completed 0 09/10/2024, 09/19/2023, 09/02/2022, Additional history exists Procedures Procedure Name Priority Date/Time Associated Diagnosis Comments MAMMO 3D JERILYN SCREEN BILAT W OR WO CAD Routine 09/27/2024 1:35 PM CDT Screening mammogram, encounter for HEMOGLOBIN A1C Routine 09/02/2022 10:59 AM CDT Encounter for routine adult health examination with abnormal findings COLONOSCOPY REPORT 05/31/2021 12 :06 PM CORPORATE TRAINER CERV/VAG CYTO AGE BASED SCREEN PAP Routine 12/03/2020 4:13 PM CDT Well woman exam with routine gynecological exam from Last 3 Months or Most Recently Relevant to Health Maintenance Results * MAMMO 3D JERILYN SCREEN BILAT W OR WO CAD (09/27/2024 1:35 PM CDT) Anatomical Region Laterality Modality Breast Bilateral Mammography 09/27/2024 1:36 PM CDT Impressions 09/27/2024 2:05 PM CDT IMPRESSION: 1. No concerning findings. OVERALL FINAL ASSESSMENT: BI-RADS CATEGORY 1 - Negative. RECOMMENDATIONS: 1. Recommend annual mammography. [facility] 09/27/2024 2:05 PM CDT BILATERAL SCREENING DIGITAL MAMMOGRAM WITH 3D TOMOSYNTHESIS AND CAD DATE: 09/27/2024 1:35 PM HISTORY: Routine yearly screening exam. TECHNIQUE: Low-dose full-field digital breast tomosynthesis examination was performed of both breasts with 2D and 3D acquisitions. CAD was utilized. COMPARISON: Studies dating back to August 2021 BREAST COMPOSITION: There are scattered areas of fibroglandular density. FINDINGS: Right Breast: No concerning dominant masses, suspicious calcifications, parenchymal asymmetries or areas of architectural distortion are identified in the breast. Left Breast: No concerning dominant masses, suspicious calcifications, parenchymal asymmetries or areas of architectural distortion are identified in the breast. us Mainor Welch MD MAMMO ORDERABLES Final Result * HEMOGLOBIN A1C (09/02/2022 10:59 AM CDT) HEMOGLOBIN A1C 5.0 <5.7 % of total Hgb [facility] Comment: For the purpose of screening for the presence of diabetes: <5.7% Consistent with the absence of diabetes 5.7-6.4% Consistent with increased risk for diabetes (prediabetes) > or =6.5% Consistent with diabetes This assay result is consistent with a decreased risk of diabetes. Currently, no consensus exists regarding use of hemoglobin A1c for diagnosis of diabetes in children. According to [place] [employer] Association (ADA) guidelines, hemoglobin A1c <7.0% represents optimal control in non- diabetic patients. Different metrics may apply to specific patient populations. Standards of Medical Care in Diabetes(ADA). ESTIMATED AVERAGE GLUCOSE (MG/DL) 97 mg/dL [facility] ESTIMATED AVERAGE GLUCOSE (MMOL/L) 5.4 mmol/L [facility] Comment: Test Performed at: [facility] [address] [place] [address] [facility] 09/02/2022 10:5 9 AM CDT 09/02/2022 11:00 AM CDT us Mainor Welch MD CHEMISTRY ORDERABLES Final Re sult [facility] [phone] [facility] [address] [place] [address] * COLONOSCOPY REPORT (05/31/2021 12:06 PM CORPORATE TRAINER) Narrative Procedure Note Luis Crowe MD - 05/31/2021 12:05 PM CST [facility] Endoscopy Patient Name: Sony [...] Addenda: 0 Procedure Date: 05/31/2021 11:33:58 AM [address] [place] [address] Luis Crowe MD GI PROCEDURE ORDERABLES Final R esult * CERV/VAG CYTO AGE BASED SCREEN PAP (12/03/2020 4:13 PM CDT) COMMENT (PAP): [facility] Comment: This order for age-based cervical cancer and STI screening follows ACOG guidelines(PB 168, 140, TFY089). See individual assays for performing site location. CLINICAL INFORMATION [facility] Comment:Information not prov ided LAST MENSTRUAL PERIOD [facility] Comment:INFORMATION NOT PROV IDED PREV PAP: [facility] Comment:INFORMATION NOT PROV IDED PREV BX: [facility] Comment:INFORMATION NOT PROV IDED SOURCE [facility] Comment:Endocervix ADEQUACY: [facility] Comment: Satisfactory for evaluation. Endocervical/transformation zone component present. Age and/or menstrual status not provided PAP INTERP [facility] Comment:Negative for intraep ithelial lesion or malignancy. CYTOLOGY INFECTION [facility] Comment: Shift in vaginal perfecto suggestive of bacterial vaginosis. COMMENT [facility] Comment: This Pap test has been evaluated with computer assisted technology. ELECTRIC MOTOR REBUILDER: [facility] Comment: [id number](ASCP) CT screening location: [place] [address] [place] [address] EXPLANATORY NOTE [facility] Comment: EXPLANATORY NOTE: The Pap is [...] information. HPV E6/E7 Not Detected Not Detected [facility] Comment: Methodology: Accounting Bookkeeper-Mediated Amplification This assay detects E6/E7 viral messenger RNA (mRNA) from 14 high-risk HPV types (16,18,31,33,35,39,45,51,52,56,58,59,66,68). The analytical performance characteristics of this assay have been determined by [facility]. The modifications have not been cleared or approved by the FDA. This assay has been validated pursuant to the CLIA regulations and is used for clinical purposes. For additional information, please refer to http://education.Kixer/faq/EXW463c4 (This link if provided for information/ educational purposes only.) Test Performed at: [facility] [address] [place] [address] Miles Garibay D.O., MPH SL Genital SWAB OF ENDOCERVIX / Unknown 12/03/2020 4:13 PM CDT 12/03/2020 11:46 PM CDT us Tara Self NP PATHOLOGY/CYTOLOGY ORDERABLES Fi nal Result [facility] [address] [place] [address] from Last 3 Months or Most Recently Relevant to Health Maintenance Insurance winter [place] [id number] [facility] FEDERAL Advance Directives For more information, please contact: [phone] * Full Code (Latest Code Status on File) Date Activated Date Inactivated Comments 05/31/2021 11:04 AM 05/31/2021 2:31 PM Care Teams Corporate Claims Examiner Relationship Specialty Start Date End Date Mainor Welch MD PCP - General 10/09/07
--- OUTSIDE RECORDS SUMMARY | 2025-03-14 13:06 | XMS_ITS | Encounter Summary ---
Author Organization [facility] Address [address] [place] [address] Care Team Providers Care Rectifying Attendant Name Role Phone Mainor Welch MD Primary Care Provider [phone] Encounter Details Date Type Department Care Team (Late Contact Info) Description 03/21/2007 Outpatient Historical [facility] Internal Medicine [address] [address] Mainor Welch MD [address] [place] [address] [address] [place] [address] Social History Tobacco Use Types Packs/Day Years Used Date Smoking Tobacco: Never Assessed Comments Unknown Sex and Gender Information Value Date Recorded Sex Assigned at Not on file Legal Sex Female 5:28 AM MUD PLANT OPERATOR Gender Identity Not on file Sexual Orientation Not on file documented as of this encounter Last Filed Vital Signs Vital Sign Reading Time Taken Comments Blood Pressure 140/88 03/21/2007 10:45 AM MUD PLANT OPERATOR Pulse - - Temperature - - Respiratory Rate - - Oxygen Saturation - - Inhaled Oxygen Concentration - - Weight 118.8 kg (262 lb) 03/21/2007 10:45 AM MUD PLANT OPERATOR Height - - Body Mass Index - - documented in this encounter Plan of Treatment Upcoming Encounters Date Type Department Care Team (Late st Contact Info) Description 03/27/2025 3:00 PM MUD PLANT OPERATOR Office Visit [facility] Primary Care [address] [place] [address] Mainor Welch MD [address] [place] [address] documented as of this encounter Visit Diagnoses Not on filedocumented in this encounter Care Teams Rectifying Attendant Relationship Specialty Start Date End Date Mainor Welch MD PCP - General 10/09/07 documented as of this encounter
[2025-03-14 13:24] LABS: Hematocrit 42.0 % (37.0-47.0); Hemoglobin 13.8 g/dL (12.0-15.0); Mean Corpuscular HGB Conc 32.9 g/dl (32-36); Mean Corpuscular Hemoglobin 30.5 pg (26-34); Mean Corpuscular Volume 92.9 fl (80-100); Platelet Count Result 204 k/mm3 (150-375); Red Blood Count 4.52 M/mm3 (4.2-5.4); White Blood Count 5.4 K/mm3 (4.5-10.0)
[2025-03-14 13:35] LABS: Albumin Level 4.6 g/dL (3.5-5.1); Anion Gap 8 mmol/L (4-12); Blood Urea Nitrogen 21 mg/dL (7-17); Calcium 9.6 mg/dL (8.4-10.2); Carbon Dioxide 27 mmol/L (22-30); Chloride 103 mmol/L (98-107); Estimated Glomerular Filt Rate > 60; Glucose 100 mg/dL (65-110); Iron 93 ug/dL (37-170); Potassium 4.0 mmol/L (3.4-5.0); Sodium 138 mmol/L (137-145)
[2025-03-14 13:49] LABS: Prealbumin 26.8 mg/dL (17.6-36.0)
[2025-03-19 05:08] LABS: Vit. B1, Whole Blood 174.9 nmol/L (66.5-200.0)
== END 2025-03-14 13:02 | disposition home or self-care (01) ==
LOC: ANHLAB 13:03
PROVIDERS: PCP Internal Medicine; Visit Provider Surgery Plastic and Reconstructive Surgery
DX: R63.4 Abnormal weight loss (principal)
CPT/HCPCS: 36415; 80048; 82040; 83540; 84134; 84425; 85027